=== PATIENT | male | born 1975 | race Caucasian/White ===

== ENCOUNTER 2016-06-21 10:05 | Inpatient (IN) | payer SELFPAY ==
[2016-06-21] VITALS (10 sets, daily range): BP systolic 114–120; BP diastolic 62–80; PULSE 94–100; RESP 18; TEMP 96.4–100.4; O2SAT 99–100
[2016-06-21] MEDS ORDERED: PROPOFOL 1000 MG/100 ML INJ 100 ML ONE ×2 (10:12→16:46)
[2016-06-21] MEDS ORDERED: ceFAZolin 2 GM PREMIX 50 ML ONE (10:13)
[2016-06-21] MEDS ORDERED: DIPHTH/TETANUS/ACEL PERTUSSIS (BOOSTER) 0.5 ML VIAL/PFS IM ONE (10:13)
[2016-06-21 10:26] LABS: I-STAT POTASSIUM 4.4 MMOL/L (3.5-4.9)
[2016-06-21 10:27] LABS: AUTOMATED NEUTROPHIL # 11.3 TH/MM3 (1.8-7.7); BASOPHIL % 0.3 % (0.0-2.0); EOSINOPHIL # 0.2 TH/MM3 (0-0.4); EOSINOPHIL % 1.7 % (0.0-4.0); HEMATOCRIT 40.1 % (39.0-51.0); HEMO FLAGS DIFF FINAL; LYMPH % 14.3 % (9.0-44.0); LYMPHOCYTE # 2.1 TH/MM3 (1.0-4.8); MEAN CELL VOLUME 91.5 FL (80.0-100.0); MEAN CORPUSCULAR HEMOGLOBIN 32.4 PG (27.0-34.0); MEAN CORPUSCULAR HGB CONC 35.4 % (32.0-36.0); MONO % 5.3 % (0.0-8.0); NEUT % 78.4 % (16.0-70.0); PLATELET COUNT 248 TH/MM3 (150-450); RED BLOOD COUNT 4.38 MIL/MM3 (4.50-5.90); RED CELL DISTRIBUTION WIDTH 12.9 % (11.6-17.2); WHITE BLOOD COUNT 14.4 TH/MM3 (4.0-11.0)
[2016-06-21 10:37] LABS: APTT (PATIENT) 27.7 SEC (24.3-30.1); INTERNATIONAL NORMALIZED RATIO 1.1 RATIO; PROTHROMBIN TIME - PATIENT 12.1 SEC (9.8-11.6)
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
[2016-06-21] MEDS ORDERED: IOHEXOL 350 MG/ML 10 ML VIAL (for RAD DIAG) IV ONE (10:47)
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
[2016-06-21] MEDS: DOCUSATE SODIUM 100 MG CAP PO SCH ×2 (11:00→21:00)
[2016-06-21] MEDS ORDERED: CHLORHEXIDINE GLUCONATE 2 % 1 PACK (2 CLOTHS) TOP PRN ×2 (11:00→16:00)
[2016-06-21] MEDS ORDERED: FOSPHENYTOIN SODIUM 500 MG PE/10 ML VIAL IV ONE (11:00)
[2016-06-21] MEDS ORDERED: SODIUM CHLORIDE 0.9% FLUSH 5 ML FLUSH IVF PRN (11:00)
[2016-06-21] MEDS ORDERED: ENALAPRILAT 1.25 MG/ML VIAL IV PRN (11:00)
[2016-06-21] MEDS ORDERED: ONDANSETRON HCL 4 MG/2 ML VIAL IV PRN (11:00)
[2016-06-21] MEDS ORDERED: MANNITOL INJ 50 ML ONE ×2 (11:00→11:04)
[2016-06-21] MEDS ORDERED: MISCELLANEOUS NURSING INFORMATION XX SCH ×2 (11:00→16:00)
[2016-06-21] MEDS ORDERED: THROMBIN (TOPICAL) 5,000 UNIT VIAL ONE ×2 (11:03→11:58)
[2016-06-21] MEDS ORDERED: SODIUM CHLORIDE 0.9% 20 ML VIAL ONE (11:03)
[2016-06-21] MEDS ORDERED: BUPIVACAINE/EPINEPHRINE 0.5% PF 30 ML VIAL ONE (11:03)
[2016-06-21] MEDS ORDERED: ceFAZolin INJ 1,000 MG VIAL ONE (11:04)
[2016-06-21] MEDS ORDERED: GENTAMICIN SULFATE 80 MG/2 ML VIAL ONE ×2 (11:04→11:06)
[2016-06-21] MEDS ORDERED: GELFOAM SIZE 100 ONE (11:04)
[2016-06-21] MEDS ORDERED: FUROSEMIDE 100 MG/10 ML VIAL ONE (11:04)
[2016-06-21] MEDS ORDERED: VANCOMYCIN HCL 1000 MG VIAL ONE (11:06)
[2016-06-21] MEDS ORDERED: SODIUM CHLOR 0.9% 250 ML INJ 250 ML ONE (11:07)
[2016-06-21] MEDS ORDERED: 3% SALINE INJ 500 ML IV SCH (11:20)
[2016-06-21] MEDS ORDERED: SODIUM BICARBONATE 8.4% INJ 50 ML ONE ×2 (11:21→14:51)
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
[2016-06-21] MEDS ORDERED: levETIRAcetam 500 MG/5 ML VIAL IV ONE (11:34)
[2016-06-21 11:43] LABS: BLOOD GAS CARBOXYHEMOGLOBIN 0.7 % (0-4); BLOOD GAS HCO3 19 mmol/L (22-26); BLOOD GAS METHEMOGLOBIN 0.8 % (0-2); BLOOD GAS O2 HGB SATURATION 99 % (90-100); BLOOD GAS OXYGEN CONTENT 13.7 Vol % (12.0-20.0); BLOOD GAS PCO2 39 mmHg (38-42); BLOOD GAS PO2 515 mmHg (61-120); BLOOD GAS TOTAL HGB 8.9 G/DL (12.0-16.0); TEMP CORR TO 98.6
[2016-06-21 11:44] LABS: CRITICAL VALUE NO; DRAW SITE ART LINE; FIO2 100 %; OXYGEN DEVICE VENTILATOR; STAT YES
[2016-06-21] MEDS ORDERED: PHENYLEPH/NS 1000 MCG/10 ML SYR IV ONE (12:00)
[2016-06-21] MEDS ORDERED: DEXT 5%-NACL 0.45% 500 ML INJ 500 ML IV ONE (12:00)
[2016-06-21] MEDS: levETIRAcetam INJ 500 MG in SODIUM CHLORIDE 0.9% INJ 100 ML IV SCH ×2 (12:00→21:00)
[2016-06-21] MEDS ORDERED: SODIUM CHLOR 0.9% 250 ML INJ 250 ML IV ONE (12:00)
[2016-06-21] MEDS ORDERED: PROPOFOL 200 MG/20 ML AMP IV ONE (12:00)
[2016-06-21] MEDS ORDERED: FOSPHENYTOIN INJ 500 MGPE in SODIUM CHLORIDE 0.9% INJ 50 ML IV ONE (12:00)
[2016-06-21] MEDS: PANTOPRAZOLE SODIUM 40 MG VIAL IVP SCH (12:00)
[2016-06-21] MEDS ORDERED: NORMOSOL R INJ 1,000 ML IV ONE (12:00)
[2016-06-21 12:09] LABS: BICARBONATE 21.8 MEQ/L (21.0-32.0); CALCIUM-PROTEIN CORRECTED 7.9 MG/DL (8.5-10.1); TOTAL BILIRUBIN ADULT 0.2 MG/DL (0.2-1.0)
[2016-06-21 12:10] LABS: POTASSIUM 4.7 MEQ/L (3.5-5.1)
[2016-06-21] MEDS ORDERED: SUCCINYLCHOLINE CHLORIDE 200 MG/10 ML VIAL IVP ONE (12:12)
[2016-06-21] MEDS ORDERED: ETOMIDATE 20 MG/10 ML VIAL IV PUSH ONE (12:12)
[2016-06-21] MEDS ORDERED: LORazepam 2 MG/ML VIAL IVP ONE (12:12)
[2016-06-21] MEDS ORDERED: LIDOCAINE HCL 2% 100 MG/5 ML SYRINGE IV PUSH ONE (12:12)
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
--- NOTE | 2016-06-21 13:25 | PD.OP ---
Operative Report Date of Surgery: Jun 21, 2016 Preoperative Diagnosis: Severe traumatic brain injury with acute left subdural hemorrhage and associated traumatic subarachnoid hemorrhage with diffuse cerebral swelling and midline shift Postoperative Diagnosis: Same Procedure: Left frontotemporoparietal craniotomy for evacuation of subdural hemorrhage; left decompressive craniectomy with expansive duraplasty; right frontal bur hole ventriculostomy placement; microsurgical technique Anesthesia: Gen. endotracheal by Inder Solitario Surgeon: Noel Moscoso M.D. Feed Manager(s): Mirian Anne Operation and Findings: This is a middle aged gentleman who suffered from severe traumatic brain injury with a Danielle Coma Score of 4. She has a diffuse cerebral swelling along with a left acute subdural hemorrhage and midline shift. No family is currently available the procedure is being undertaken taking the patient's best interest into account. Following initiation of a general endotracheal anesthesia the patient had invasive lines and Guzman catheter in place along with the sequential compression device. A gram of vancomycin and Keppra along with 100 g of mannitol total was administered intravenously and he was positioned with the left side up on a shoulder roll and head secured on a horseshoe headrest. The left frontal, parietal and temporal areas along with the right frontal area shaved and prepped with Betadine solution and ChloraPrep and sterilely draped in the usual sterile fashion. A large left trauma reverse question monserrat incision was then made after infiltrating the scalp was 0.5% Marcaine with epinephrine solution a skin incision made extending onto the galea and the temporalis muscle and fascia also split and detached from the underlying skull. Bakari clips were used at the scalp edges for hemostasis and the flap retracted with hooks. With an automated watershed tender jyotsna hole was made one in the frontal and one in the inferior temporal area and with the craniotome the bone flap elevated. A temporal craniectomy using a Leksell was also undertaken to decompress the middle fossa down to the floor. The dura was opened in a cruciate form and subdural hemorrhage under pressure was identified clotted mainly clotted blood. Left frontal contusions also noticed which were cauterized using microtechnique with microscope magnification. The brain was swollen with a protrusion through skull defect and the traumatic S Stewart hemorrhage was also evident. DuraGen was used for expansive duraplasty to allow for the brain swelling. The bone flap was not replaced and placed in a sterile container in the freezer for later replacement. A drain was also placed in the subgaleal space which was exited through a separate site and secured to the scalp. The galea was then approximated using 2-0 Vicryl Sutures and final scalp closure was with tha. Subsequently the right frontal area was infiltrated with landmarks 11 cm behind the nasion and 3 cm right of the midline. A bur hole was made using the automated watershed tender and the underlying dura cauterized and opened in a cruciate format. The bactiseal ventriculostomy catheter within past the lateral ventricle at a depth of 7 cm blood-tinged CSF was encountered. The distal end was tunneled under the scalp and secured the exit site with a 3-0 nylon and connected to a drainage bag. The galea was approximated using 3-0 Vicryl Stitches and final closure with tha. A sterile non-pressure dressing was then applied. There were no intraoperative complications and all sponge and needle count was correct at the end of the procedure. Estimated blood loss about 200 cc. Noel Moscoso MD Jun 21, 2016 13:25
--- NOTE | 2016-06-21 13:54 | PD.OP ---
cc: Edis Russell MD Operative Report Date of Surgery: Jun 21, 2016 Preoperative Diagnosis: Comminuted left femur fracture Postoperative Diagnosis: Procedure: Placement of traction pin, closed reduction of left femur fracture Anesthesia: Gen. Surgeon: Edis Russell Stylist Assistant(s): DANIELE Amezcua PA-C Operation and Findings: This patient was a trauma patient. He was brought to the operating room emergently by Dr. Moscoso for treatment of subdural hematoma. He has a segmental left femur fracture. He was not cleared for definitive treatment of the femur. Because of patient's overall medical condition, definitive intubated nail fixation may be delayed for several days or possibly weeks. I discussed this case with Dr. Loving of anesthesia as well as Dr. Moscoso of neurosurgery and decision was made to proceed with skeletal traction. Procedure began with placement of traction pin. Skin was prepped with alcohol followed by DuraPrep. A small incision was made over the lateral aspect of the distal femur. A skeletal traction pin was now drilled to the distal femur in the supracondylar region. Next attention was turned to reduction. Gentle traction was applied. The leg was manipulated to help improve alignment of the fracture. Patient was now transferred to his hospital bed. He is placed in skeletal traction to help maintain reduction. Patient was transferred back to intensive care in critical condition. Edis Russell MD Jun 21, 2016 13:54
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
[2016-06-21] MEDS ORDERED: NOREPINEPHRINE 4 MG/4 ML AMP ONE (14:02)
[2016-06-21] MEDS ORDERED: MIDAZOLAM HCL 2 MG/2 ML VIAL ONE (14:10)
[2016-06-21] MEDS ORDERED: fentaNYL CITRATE 250 MCG/5 ML AMP ONE (14:11)
[2016-06-21] MEDS ORDERED: VECURONIUM BROMIDE 10 MG VIAL ONE (14:13)
[2016-06-21] MEDS ORDERED: MIDAZOLAM HCL 5 MG/ML VIAL (1 ML) ONE (14:13)
[2016-06-21] MEDS ORDERED: SODIUM CHLORIDE 23.4% INJ 240 MEQ in SYRINGE/BAG 1 EA IV ONE (14:15)
[2016-06-21] MEDS ORDERED: VASOPRESSIN INJ 20 UNITS/ML VIAL ONE (14:23)
[2016-06-21] MEDS ORDERED: [UNRECOGNIZED DRUG - REMARK] IV SCH ×2 (14:30)
[2016-06-21] MEDS ORDERED: VASOPRESSIN 40 U/D5W 100 ML Hypotension, do NOT titrate (enter ordered rate) IV SCH ×2 (14:30)
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
[2016-06-21] MEDS ORDERED: EPINEPHrine HCL (1:1000) 1 MG/ML VIAL ONE (14:38)
[2016-06-21 14:44] LABS: BLOOD GAS BASE EXCESS -4.6 mmol/L (-2-2); BLOOD GAS CARBOXYHEMOGLOBIN 1.2 % (0-4); BLOOD GAS HCO3 18 mmol/L (22-26); BLOOD GAS METHEMOGLOBIN 0.7 % (0-2); BLOOD GAS O2 HGB SATURATION 98 % (90-100); BLOOD GAS OXYGEN CONTENT 9.5 Vol % (12.0-20.0); BLOOD GAS PCO2 22 mmHg (38-42); BLOOD GAS PO2 267 mmHg (61-120); BLOOD GAS TOTAL HGB 6.4 G/DL (12.0-16.0); CRITICAL VALUE YES; FIO2 45 %; OXYGEN DEVICE VENTILATOR; TEMP CORR TO 98.6
[2016-06-21 14:45] LABS: DRAW SITE ART LINE; STAT YES
[2016-06-21] MEDS ORDERED: VECURONIUM BROMIDE 10 MG VIAL IV ONE (14:45)
[2016-06-21] MEDS ORDERED: MANNITOL 12.5 GM/50 ML VIAL IV ONE (14:45)
[2016-06-21] MEDS ORDERED: MIDAZOLAM HCL 5 MG/5 ML VIAL IVP ONE (14:45)
[2016-06-21 14:46] LABS: AUTOMATED NEUTROPHIL # 13.2 TH/MM3 (1.8-7.7); BASOPHIL # 0.1 TH/MM3 (0-0.2); BASOPHIL % 0.4 % (0.0-2.0); EOSINOPHIL % 0.2 % (0.0-4.0); LYMPH % 4.2 % (9.0-44.0); LYMPHOCYTE # 0.6 TH/MM3 (1.0-4.8); MEAN CELL VOLUME 90.1 FL (80.0-100.0); MEAN CORPUSCULAR HEMOGLOBIN 31.8 PG (27.0-34.0); MEAN CORPUSCULAR HGB CONC 35.2 % (32.0-36.0); MONO % 4.7 % (0.0-8.0); NEUT % 90.5 % (16.0-70.0); PLATELET COUNT 124 TH/MM3 (150-450); RED CELL DISTRIBUTION WIDTH 12.7 % (11.6-17.2); WHITE BLOOD COUNT 14.6 TH/MM3 (4.0-11.0)
[2016-06-21 14:52] LABS: HEMO FLAGS DIFF FINAL
[2016-06-21] MEDS ORDERED: SODIUM BICARBONATE 8.4% INJ 50 MEQ/50 ML SYR ONE (14:53)
[2016-06-21 14:59] LABS: APTT (PATIENT) 30.9 SEC (24.3-30.1); INTERNATIONAL NORMALIZED RATIO 1.5 RATIO; PROTHROMBIN TIME - PATIENT 16.4 SEC (9.8-11.6)
[2016-06-21] MEDS: VASOPRESSIN INJ 40 UNITS in SODIUM CHLORIDE 0.9% INJ 98 ML IV SCH (15:00)
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
[2016-06-21] MEDS ORDERED: POTASSIUM CL 40 MEQ/30 ML LIQ UDC PO/TUBE PRN ×2 (15:45)
[2016-06-21] MEDS ORDERED: MAGNESIUM SULFATE INJ 2 GM in SODIUM CHLORIDE 0.9% INJ 96 ML IV PRN (15:45)
[2016-06-21] MEDS ORDERED: MAGNESIUM OXIDE 400 MG TAB PO PRN (15:45)
[2016-06-21] MEDS ORDERED: POTASSIUM PHOSPHATE MONOBASIC 500 MG TAB PO/TUBE PRN (15:45)
[2016-06-21] MEDS ORDERED: POTASSIUM CHLOR 20 MEQ PREMIX 100 ML IV PRN (15:45)
[2016-06-21] MEDS ORDERED: POTASSIUM CHLOR 40 MEQ PREMIX 100 ML IV PRN (15:45)
[2016-06-21] MEDS ORDERED: POTASSIUM PHOSPHATE MONOBASIC 500 MG TAB PO PRN (15:45)
[2016-06-21] MEDS ORDERED: DEXTROSE 50% IN WATER 50 ML VIAL(D50) IV PUSH PRN (15:45)
[2016-06-21] MEDS ORDERED: MAGNESIUM SULFATE INJ 4 GM in SODIUM CHLORIDE 0.9% INJ 92 ML IV PRN (15:45)
[2016-06-21] MEDS ORDERED: SODIUM PHOSPHATE INJ 30 MMOL in SODIUM CHLOR 0.9% 250 ML INJ 240 ML IV PRN (15:45)
[2016-06-21] MEDS ORDERED: SODIUM CHLORIDE 0.9% FLUSH 5 ML FLUSH IV FLUSH PRN (16:00)
[2016-06-21 16:50] LABS: BLOOD GAS BASE EXCESS -6.1 mmol/L (-2-2); BLOOD GAS HCO3 18 mmol/L (22-26); BLOOD GAS METHEMOGLOBIN 0.9 % (0-2); BLOOD GAS O2 HGB SATURATION 98 % (90-100); BLOOD GAS OXYGEN CONTENT 15.6 Vol % (12.0-20.0); BLOOD GAS PCO2 28 mmHg (38-42); BLOOD GAS PO2 261 mmHg (61-120); BLOOD GAS TOTAL HGB 10.9 G/DL (12.0-16.0); CRITICAL VALUE NO; OXYGEN DEVICE VENTILATOR; TEMP CORR TO 98.6
[2016-06-21 16:51] LABS: DRAW SITE ART LINE; FIO2 45 %; STAT YES
[2016-06-21 17:39] LABS: BICARBONATE 19.6 MEQ/L (21.0-32.0); POTASSIUM 4.1 MEQ/L (3.5-5.1)
[2016-06-21] MEDS: INSULIN NovoLIN REGULAR SUPPLEMENTAL SCALE SQ SCH (18:00)
[2016-06-21] MEDS: MANNITOL 12.5 GM/50 ML VIAL IV SCH ×2 (18:00→23:13)
[2016-06-21 18:01] LABS: CALCIUM-PROTEIN CORRECTED 8.3 MG/DL (8.5-10.1)
[2016-06-21] MEDS: NOREPINEPHRINE INJ 4 MG in SODIUM CHLOR 0.9% 250 ML INJ 250 ML IV SCH (20:50)
[2016-06-21] MEDS: MIDAZOLAM 100 MG/NS 100 ML DRIP Premix IV SCH (20:51)
[2016-06-21] MEDS: SODIUM CHLORIDE 0.9% FLUSH 5 ML FLUSH IV FLUSH SCH (21:00)
[2016-06-21 21:06] LABS: MEAN CORPUSCULAR HGB CONC 36.1 % (32.0-36.0)
[2016-06-21 22:28] LABS: AUTOMATED NEUTROPHIL # 17.6 TH/MM3 (1.8-7.7); BASOPHIL % 0.2 % (0.0-2.0); HEMATOCRIT 29.2 % (39.0-51.0); LYMPH % 4.1 % (9.0-44.0); LYMPHOCYTE # 0.9 TH/MM3 (1.0-4.8); MEAN CELL VOLUME 89.1 FL (80.0-100.0); MEAN CORPUSCULAR HEMOGLOBIN 31.2 PG (27.0-34.0); MONO % 10.4 % (0.0-8.0); NEUT % 85.3 % (16.0-70.0); PLATELET COUNT 122 TH/MM3 (150-450); RED BLOOD COUNT 3.28 MIL/MM3 (4.50-5.90); RED CELL DISTRIBUTION WIDTH 13.2 % (11.6-17.2); WHITE BLOOD COUNT 20.6 TH/MM3 (4.0-11.0)
[2016-06-21 22:30] LABS: HEMO FLAGS AUTO DIFF
[2016-06-21 23:04] LABS: BICARBONATE 19.1 MEQ/L (21.0-32.0)
[2016-06-21 23:07] LABS: POTASSIUM 2.4 MEQ/L (3.5-5.1)
[2016-06-21 23:18] LABS: CALCIUM-PROTEIN CORRECTED 9.1 MG/DL (8.5-10.1)
[2016-06-21 23:19] LABS: PLATELET ESTIMATE SMEAR LOW (NORMAL); PLATELET MORPHOLOGY NORMAL (NORMAL); SCAN/DIFF AUTO DIFF CONFIRMED
[2016-06-22] VITALS (19 sets, daily range): BP systolic 110–128; BP diastolic 62–87; PULSE 58–105; RESP 15–18; TEMP 96.6–100; O2SAT 98–100
[2016-06-22] MEDS: POTASSIUM CHLOR 40 MEQ PREMIX 100 ML IV PRN (00:08)
[2016-06-22] MEDS: NOREPINEPHRINE INJ 4 MG in SODIUM CHLOR 0.9% 250 ML INJ 250 ML IV SCH ×4 (02:43→21:38)
[2016-06-22] MEDS: CHLORHEXIDINE GLUCONATE 2 % 1 PACK (2 CLOTHS) TOP SCH (02:47)
[2016-06-22] MEDS: PROPOFOL 1000 MG/100 ML INJ 100 ML IV SCH ×5 (02:48→23:17)
[2016-06-22 03:53] LABS: HEMATOCRIT 28.7 % (39.0-51.0); MEAN CELL VOLUME 88.6 FL (80.0-100.0); MEAN CORPUSCULAR HEMOGLOBIN 31.9 PG (27.0-34.0); PLATELET COUNT 121 TH/MM3 (150-450); RED BLOOD COUNT 3.24 MIL/MM3 (4.50-5.90); RED CELL DISTRIBUTION WIDTH 13.3 % (11.6-17.2); WHITE BLOOD COUNT 20.9 TH/MM3 (4.0-11.0)
[2016-06-22 03:54] LABS: REVIEW FLAG FINAL
[2016-06-22] MEDS ORDERED: CHLORHEXIDINE GLUCONATE 2 % 1 PACK (2 CLOTHS) TOP SCH (04:00)
[2016-06-22 04:17] LABS: BICARBONATE 17.9 MEQ/L (21.0-32.0); POTASSIUM 3.4 MEQ/L (3.5-5.1)
[2016-06-22] MEDS: MIDAZOLAM 100 MG/NS 100 ML DRIP Premix IV SCH ×2 (04:32→15:36)
[2016-06-22] MEDS: POTASSIUM CHLOR 20 MEQ PREMIX 100 ML IV PRN (04:32)
[2016-06-22 04:38] LABS: CALCIUM-PROTEIN CORRECTED 8.8 MG/DL (8.5-10.1)
[2016-06-22] MEDS: MANNITOL 12.5 GM/50 ML VIAL IV SCH ×3 (05:19→17:39)
--- NOTE | 2016-06-22 05:19 | RADRPT ---
EXAM DATE/TIME: 06/22/2016 04:28 [place] COMPARISON: CHEST SINGLE AP, June 21, 2016, 9:59. INDICATIONS : Shortness of breath. MEDICAL HISTORY : Unobtainable. SURGICAL HISTORY : Unobtainable. ENCOUNTER: Subsequent ACUITY: 2 days PAIN SCORE: Non-responsive. LOCATION: Bilateral chest FINDINGS: No infiltrates seen. No pleural effusion or pneumothorax. Heart size stable, within normal limits. Endotracheal tube tip is about 3 cm above the marjan. There is a nasogastric tube now present, coiled in the stomach. Left subclavian central venous catheter has also been placed and the tip in the supe rior vena cava. CONCLUSION: Support tubes appropriately positioned as above. Lungs remain clear. Prince Valdez MD on June 22, 2016 at 5:16 Board Certified Radiologist. This report was verified electronically.
[2016-06-22 05:30] LABS: BLOOD GAS BASE EXCESS -5.5 mmol/L (-2-2); BLOOD GAS HCO3 18 mmol/L (22-26); BLOOD GAS O2 HGB SATURATION 97 % (90-100); BLOOD GAS PCO2 26 mmHg (38-42); BLOOD GAS PO2 173 mmHg (61-120); CRITICAL VALUE NO; OXYGEN DEVICE VENTILATOR; TEMP CORR TO 98.6
[2016-06-22 05:31] LABS: DRAW SITE ART LINE; FIO2 30 %; STAT NO; VENT SETTINGS PRVC/AC
[2016-06-22] MEDS: INSULIN NovoLIN REGULAR SUPPLEMENTAL SCALE SQ SCH ×4 (05:38→18:00)
[2016-06-22] MEDS: DOCUSATE SODIUM 100 MG CAP PO SCH ×2 (09:00→20:39)
[2016-06-22] MEDS: levETIRAcetam INJ 500 MG in SODIUM CHLORIDE 0.9% INJ 100 ML IV SCH ×2 (09:00→20:39)
[2016-06-22] MEDS: SODIUM CHLORIDE 0.9% FLUSH 5 ML FLUSH IV FLUSH SCH ×2 (09:00→20:40)
[2016-06-22] MEDS ORDERED: RESP: ALBUTEROL 2.5 MG/IPRATROPIUM 0.5 MG NEB (PRN) NEB (09:30)
[2016-06-22] MEDS ORDERED: PNEUMOCOCCAL POLYVALENT INJ 25 MCG/0.5 ML SYR IM ONE (10:00)
[2016-06-22 10:01] LABS: BLOOD GAS BASE EXCESS -4.9 mmol/L (-2-2); BLOOD GAS CARBOXYHEMOGLOBIN 0.9 % (0-4); BLOOD GAS HCO3 20 mmol/L (22-26); BLOOD GAS O2 HGB SATURATION 97 % (90-100); BLOOD GAS OXYGEN CONTENT 13.2 Vol % (12.0-20.0); BLOOD GAS PCO2 35 mmHg (38-42); BLOOD GAS PO2 165 mmHg (61-120); BLOOD GAS TOTAL HGB 9.4 G/DL (12.0-16.0); CRITICAL VALUE NO; DRAW SITE ART LINE; FIO2 30 %; OXYGEN DEVICE VENTILATOR; STAT NO; TEMP CORR TO 98.6; VENT SETTINGS PRVC/AC
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
[2016-06-22] MEDS: fentaNYL 2,500 MCG/NS 250 ML IV SCH (11:36)
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
[2016-06-22] MEDS ORDERED: ALBUMIN HUMAN 5% 25 GM/500 ML BOTTLE IV ONE (11:45)
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
[2016-06-22] MEDS: PANTOPRAZOLE SODIUM 40 MG VIAL IVP SCH (12:00)
[2016-06-22] MEDS: VASOPRESSIN INJ 40 UNITS in SODIUM CHLORIDE 0.9% INJ 98 ML IV SCH (15:00)
[2016-06-22] MEDS ORDERED: SODIUM CHLORID 0.9% 500 ML INJ 500 ML IV ONE (21:30)
[2016-06-23] VITALS (19 sets, daily range): BP systolic 130–148; BP diastolic 53–68; PULSE 56–89; RESP 15; TEMP 96.8–100.2; O2SAT 100
[2016-06-23] MEDS: fentaNYL 2,500 MCG/NS 250 ML IV SCH ×2 (01:10→19:14)
[2016-06-23] MEDS: NOREPINEPHRINE INJ 4 MG in SODIUM CHLOR 0.9% 250 ML INJ 250 ML IV SCH ×3 (01:45→13:42)
[2016-06-23] MEDS: MIDAZOLAM 100 MG/NS 100 ML DRIP Premix IV SCH ×3 (03:01→23:34)
[2016-06-23 03:44] LABS: MEAN CORPUSCULAR HEMOGLOBIN 31.5 PG (27.0-34.0); PLATELET COUNT 91 TH/MM3 (150-450); RED BLOOD COUNT 2.33 MIL/MM3 (4.50-5.90); RED CELL DISTRIBUTION WIDTH 14.1 % (11.6-17.2); WHITE BLOOD COUNT 19.4 TH/MM3 (4.0-11.0)
[2016-06-23 03:47] LABS: REVIEW FLAG FINAL
[2016-06-23] MEDS: CHLORHEXIDINE GLUCONATE 2 % 1 PACK (2 CLOTHS) TOP SCH (03:53)
[2016-06-23 04:37] LABS: BICARBONATE 19.6 MEQ/L (21.0-32.0); POTASSIUM 3.9 MEQ/L (3.5-5.1)
[2016-06-23 04:58] LABS: BLOOD GAS CARBOXYHEMOGLOBIN 1.1 % (0-4); BLOOD GAS HCO3 19 mmol/L (22-26); BLOOD GAS METHEMOGLOBIN 0.9 % (0-2); BLOOD GAS O2 HGB SATURATION 97 % (90-100); BLOOD GAS OXYGEN CONTENT 10.5 Vol % (12.0-20.0); BLOOD GAS PCO2 32 mmHg (38-42); BLOOD GAS PO2 166 mmHg (61-120); BLOOD GAS TOTAL HGB 7.4 G/DL (12.0-16.0); CRITICAL VALUE NO; DRAW SITE ALINE; FIO2 30 %; OXYGEN DEVICE VENTILATOR; STAT NO; TEMP CORR TO 98.6; ULNAR PULSE PRESENT; VENT SETTINGS PRVC/15/500/1.0/+5
[2016-06-23 05:05] LABS: CALCIUM-PROTEIN CORRECTED 8.3 MG/DL (8.5-10.1)
[2016-06-23] MEDS: INSULIN NovoLIN REGULAR SUPPLEMENTAL SCALE SQ SCH ×5 (05:15→23:32)
[2016-06-23] MEDS: MANNITOL 12.5 GM/50 ML VIAL IV SCH ×4 (05:15→18:00)
[2016-06-23] MEDS: DOCUSATE SODIUM 100 MG CAP PO SCH ×2 (08:58→20:00)
[2016-06-23] MEDS: levETIRAcetam INJ 500 MG in SODIUM CHLORIDE 0.9% INJ 100 ML IV SCH ×2 (08:58→20:00)
[2016-06-23] MEDS: SODIUM CHLORIDE 0.9% FLUSH 5 ML FLUSH IV FLUSH SCH ×2 (08:58→20:00)
[2016-06-23] MEDS ORDERED: SODIUM CHLOR 0.9% 250 ML INJ 250 ML IV ONE (09:45)
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
[2016-06-23] MEDS: PANTOPRAZOLE SODIUM 40 MG VIAL IVP SCH (13:43)
[2016-06-23] MEDS: VASOPRESSIN INJ 40 UNITS in SODIUM CHLORIDE 0.9% INJ 98 ML IV SCH (15:00)
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
[2016-06-23 18:32] LABS: BLOOD GAS BASE EXCESS -4.6 mmol/L (-2-2); BLOOD GAS CARBOXYHEMOGLOBIN 1.6 % (0-4); BLOOD GAS HCO3 20 mmol/L (22-26); BLOOD GAS METHEMOGLOBIN 0.9 % (0-2); BLOOD GAS O2 HGB SATURATION 97 % (90-100); BLOOD GAS OXYGEN CONTENT 11.4 Vol % (12.0-20.0); BLOOD GAS PCO2 35 mmHg (38-42); BLOOD GAS PO2 146 mmHg (61-120); BLOOD GAS TOTAL HGB 8.1 G/DL (12.0-16.0); CRITICAL VALUE NO; OXYGEN DEVICE VENT; TEMP CORR TO 98.6; VENT SETTINGS PRVC/15/500/5/
[2016-06-23 18:33] LABS: DRAW SITE ALINE; FIO2 30 %; STAT NO
[2016-06-24] VITALS (29 sets, daily range): BP systolic 100–182; BP diastolic 52–82; PULSE 68–130; RESP 16–18; TEMP 98.2–101.8; O2SAT 92–100
[2016-06-24] MEDS ORDERED: VASOPRESSIN INJ 40 UNITS in DEXTROSE 5% IN WATER 100ML INJ 98 ML IV SCH ×2 (00:17)
[2016-06-24] MEDS ORDERED: DESMOPRESSIN ACETATE 4 MCG/ML VIAL IV PUSH SCH (01:00)
[2016-06-24] MEDS: CHLORHEXIDINE GLUCONATE 2 % 1 PACK (2 CLOTHS) TOP SCH (03:17)
[2016-06-24 05:01] LABS: BLOOD GAS BASE EXCESS -3.9 mmol/L (-2-2); BLOOD GAS CARBOXYHEMOGLOBIN 1.5 % (0-4); BLOOD GAS HCO3 20 mmol/L (22-26); BLOOD GAS METHEMOGLOBIN 0.8 % (0-2); BLOOD GAS O2 HGB SATURATION 93 % (90-100); BLOOD GAS OXYGEN CONTENT 11.2 Vol % (12.0-20.0); BLOOD GAS PCO2 35 mmHg (38-42); BLOOD GAS PO2 76 mmHg (61-120); BLOOD GAS TOTAL HGB 8.5 G/DL (12.0-16.0); CRITICAL VALUE NO; DRAW SITE ALINE; FIO2 30 %; OXYGEN DEVICE VENTILATOR; STAT NO; TEMP CORR TO 98.6; ULNAR PULSE PRESENT; VENT SETTINGS PRVC/16/550/1.0/+5
[2016-06-24 05:04] LABS: HEMATOCRIT 23.2 % (39.0-51.0); MEAN CELL VOLUME 89.5 FL (80.0-100.0); MEAN CORPUSCULAR HEMOGLOBIN 30.7 PG (27.0-34.0); MEAN CORPUSCULAR HGB CONC 34.2 % (32.0-36.0); RED BLOOD COUNT 2.59 MIL/MM3 (4.50-5.90); RED CELL DISTRIBUTION WIDTH 14.7 % (11.6-17.2); WHITE BLOOD COUNT 14.2 TH/MM3 (4.0-11.0)
[2016-06-24 05:05] LABS: REVIEW FLAG FINAL
[2016-06-24 05:06] LABS: PLATELET COUNT 86 TH/MM3 (150-450)
[2016-06-24 05:33] LABS: BICARBONATE 21.2 MEQ/L (21.0-32.0); POTASSIUM 3.6 MEQ/L (3.5-5.1)
[2016-06-24] MEDS: MANNITOL 12.5 GM/50 ML VIAL IV SCH ×2 (05:39)
[2016-06-24] MEDS: INSULIN NovoLIN REGULAR SUPPLEMENTAL SCALE SQ SCH ×3 (06:00→18:00)
--- NOTE | 2016-06-24 07:46 | PD.ORT.PN ---
Subjective Subjective Remarks s/p application of femoral traction pin and skeletal traction underwent bone flap of head this weekend still has elevated ICP Objective Vitals Vital Signs Date Time Temp Pulse Resp B/P Pulse Ox O2 Delivery O2 Flow Rate FiO2 06/24/16 06:00 91 136/61 06/24/16 06:00 91 06/24/16 05:00 88 132/59 06/24/16 04:07 99 30 06/24/16 04:00 100.6 84 16 149/69 100 06/24/16 04:00 84 06/24/16 04:00 84 149/69 06/24/16 04:00 30 06/24/16 03:00 79 144/67 06/24/16 02:00 75 143/65 06/24/16 02:00 75 06/24/16 01:00 85 144/62 06/24/16 00:00 87 06/24/16 00:00 100.8 87 16 145/56 100 06/24/16 00:00 87 145/56 06/24/16 00:00 30 06/23/16 23:35 100 30 06/23/16 23:00 87 143/55 06/23/16 22:00 86 142/55 06/23/16 22:00 86 06/23/16 21:00 100 30 06/23/16 21:00 100 30 06/23/16 20:00 89 06/23/16 20:00 30 06/23/16 20:00 100.2 89 15 142/53 100 06/23/16 18:00 89 06/23/16 16:00 30 06/23/16 16:00 99.3 80 15 148/58 100 06/23/16 16:00 80 06/23/16 15:41 100 30 06/23/16 14:00 72 06/23/16 12:56 100 30 06/23/16 12:00 69 06/23/16 12:00 30 06/23/16 12:00 98.8 69 15 140/60 100 06/23/16 10:00 66 06/23/16 09:50 100 30 06/23/16 08:00 30 06/23/16 08:00 62 06/23/16 08:00 97.9 64 15 136/60 100 I/O 2/12/17 2/04/2706/23/16 06/24/16 06/24/16 06/24/16 07:00 15:00 23:00 07:00 15:00 23:00 Intake Total 2157 ml 1803 ml 1829 ml 1152 ml Output Total 516 ml 763 ml 2407 ml 1629 ml Balance 1641 ml 1040 ml -578 ml -477 ml Intake IV Total 2157 ml 1553 ml 1829 ml 1152 ml Packed Cells 250 ml Output Urine Total 450 ml 600 ml 2350 ml 1570 ml Stool Total 0 ml 0 ml 0 ml Gastric Drainage Total 100 ml 0 ml 0 ml Drainage Total 66 ml 63 ml 57 ml 59 ml Result Diagram: 06/24/16 0450 06/24/16 0450 Imaging Last 24 hours Impressions Chest X-Ray 06/22/16 0000 Signed Impressions: Service Date/Time: Wednesday, June 22, 2016 04:28 - CONCLUSION: Support tubes appropriately positioned as above. Lungs remain clear. Prince Valdez MD Procedures Placement of traction pin, closed reduction of left femur fracture (06/21/16) Objective Remarks Bilateral lower extremities cool to touch and pale, symmetric. LLE in skeletal traction. Pin sites clean with mild bloody drainage on dressing. Good cap refill. 2+ dorsalis pedis. Unable to assess motor/neurovascular status due to sedation/intubation. Assessment & Plan Problem List: (1) Closed fracture of left femur (2) Acute subdural hematoma (3) Blunt head trauma (4) Coma (5) Acute respiratory failure Assessment and Plan Ortho status stable POD #3. Placement of traction pin, closed reduction of left femur fracture will await further improvement of patient condition before surgical intervention performed for the femur have spoken with trauma team and will await clearance from them Yehuda Kay Jun 24, 2016 07:46
[2016-06-24] MEDS ORDERED: VASOPRESSIN INJ 40 UNITS in SODIUM CHLORIDE 0.9% INJ 98 ML IV SCH (08:00)
[2016-06-24] MEDS: levETIRAcetam INJ 500 MG in SODIUM CHLORIDE 0.9% INJ 100 ML IV SCH (08:24)
[2016-06-24] MEDS: DOCUSATE SODIUM 100 MG CAP PO SCH ×2 (08:24→20:29)
[2016-06-24] MEDS: NOREPINEPHRINE INJ 4 MG in SODIUM CHLOR 0.9% 250 ML INJ 250 ML IV SCH ×2 (08:24→21:41)
[2016-06-24] MEDS: SODIUM CHLORIDE 0.9% FLUSH 5 ML FLUSH IV FLUSH SCH ×2 (08:25→20:29)
[2016-06-24] MEDS: fentaNYL 2,500 MCG/NS 250 ML IV SCH (08:54)
[2016-06-24] MEDS: MIDAZOLAM 100 MG/NS 100 ML DRIP Premix IV SCH ×2 (08:54→20:29)
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
[2016-06-24] MEDS ORDERED: SODIUM CHLOR 0.9% 250 ML INJ 250 ML IV ONE (09:45)
[2016-06-24] MEDS: SODIUM CHLOR 0.9% 1000 ML INJ 1,000 ML IV SCH (10:00)
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
[2016-06-24] MEDS: PANTOPRAZOLE SODIUM 40 MG VIAL IVP SCH (12:00)
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
[2016-06-24 13:56] LABS: PROTHROMBIN TIME - PATIENT 11.4 SEC (9.8-11.6)
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
[2016-06-24] MEDS ORDERED: ROCURONIUM INJ 50 MG/5 ML VIAL IV PUSH ONE (15:30)
[2016-06-24] MEDS ORDERED: fentaNYL CITRATE 250 MCG/5 ML AMP IV PUSH ONE (16:15)
[2016-06-24 16:45] LABS: BLOOD GAS BASE EXCESS -2.3 mmol/L (-2-2); BLOOD GAS CARBOXYHEMOGLOBIN 1.3 % (0-4); BLOOD GAS HCO3 23 mmol/L (22-26); BLOOD GAS METHEMOGLOBIN 0.9 % (0-2); BLOOD GAS O2 HGB SATURATION 92 % (90-100); BLOOD GAS OXYGEN CONTENT 13.4 Vol % (12.0-20.0); BLOOD GAS PCO2 43 mmHg (38-42); BLOOD GAS PO2 69 mmHg (61-120); BLOOD GAS TOTAL HGB 10.3 G/DL (12.0-16.0); CRITICAL VALUE NO; OXYGEN DEVICE VENTILATOR; TEMP CORR TO 98.6
[2016-06-24 16:46] LABS: DRAW SITE ART LINE; FIO2 80 %; STAT NO; VENT SETTINGS PRVC/AC
[2016-06-24] MEDS ORDERED: BUMETANIDE INJ 1 MG/4 ML VIAL IV PUSH ONE (17:30)
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
--- NOTE | 2016-06-24 17:46 | MG ---
cc: GILBERT RAMIREZ M.D. Lab No: Date: 06/24/2016 Age: Sex: M Race: EEG NUMBER [id number] Morrison. TECHNIQUE 17 channel EEG. DESCRIPTION The background rhythm is generally slow in the theta frequency at roughly 5-6 Hz which appears to be slower over the right hemisphere. Throughout the tracing there is intermittent sharp activity which does appear to be epileptiform in the right mainly frontal area, but also the right parietal area. There was one or two runs of epileptiform discharges which lasted a prolonged period time for about 10 seconds, no more than that. No other lateralizing features seen. INTERPRETATION Abnormal study on the basis of focal slowing over the left hemisphere as well as intermittent epileptiform discharges over that area. MD AARON Puentes/KK /4:51 PM /5:41 PM
[2016-06-24] MEDS ORDERED: FOSPHENYTOIN INJ 1,000 MGPE in SODIUM CHLORIDE 0.9% INJ 50 ML IV ONE (18:00)
[2016-06-24] MEDS: PIPERACIL-TAZO 4.5 GM PREMIX 100 ML IV SCH (18:35)
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
[2016-06-24] MEDS: RESP: ALBUTEROL 2.5 MG/IPRATROPIUM 0.5 MG NEB (SCH) NEB (19:34)
[2016-06-24] MEDS: PROPOFOL 1000 MG/100 ML INJ 100 ML IV SCH (20:28)
[2016-06-24] MEDS: levETIRAcetam 1000 MG INJ 100 ML IV SCH (20:29)
[2016-06-24] MEDS: FOSPHENYTOIN SODIUM 100 MG PE/2 ML VIAL IV SCH (22:45)
[2016-06-24 22:57] LABS: BLOOD GAS BASE EXCESS -2.5 mmol/L (-2-2); BLOOD GAS CARBOXYHEMOGLOBIN 1.4 % (0-4); BLOOD GAS HCO3 22 mmol/L (22-26); BLOOD GAS METHEMOGLOBIN 0.8 % (0-2); BLOOD GAS O2 HGB SATURATION 95 % (90-100); BLOOD GAS OXYGEN CONTENT 12.1 Vol % (12.0-20.0); BLOOD GAS PO2 88 mmHg (61-120); CRITICAL VALUE NO; OXYGEN DEVICE VENTILATOR; TEMP CORR TO 98.6
[2016-06-24 22:58] LABS: BLOOD GAS PCO2 40 mmHg (38-42); DRAW SITE ART LINE; FIO2 80 %; STAT NO; VENT SETTINGS PRVC/AC
[2016-06-25] VITALS (30 sets, daily range): BP systolic 94–188; BP diastolic 48–64; PULSE 59–90; RESP 18; TEMP 96.4–98.8; O2SAT 96–100
[2016-06-25] MEDS: PIPERACIL-TAZO 4.5 GM PREMIX 100 ML IV SCH ×5 (01:12→23:19)
[2016-06-25 01:19] LABS: HEMATOCRIT 30.4 % (39.0-51.0)
[2016-06-25 01:23] LABS: REVIEW FLAG FINAL
[2016-06-25 01:26] LABS: POTASSIUM 3.2 MEQ/L (3.5-5.1)
[2016-06-25] MEDS: RESP: ALBUTEROL 2.5 MG/IPRATROPIUM 0.5 MG NEB (SCH) NEB ×4 (02:17→19:42)
[2016-06-25] MEDS: POTASSIUM CHLOR 40 MEQ PREMIX 100 ML IV PRN ×2 (02:49→05:24)
[2016-06-25] MEDS: CHLORHEXIDINE GLUCONATE 2 % 1 PACK (2 CLOTHS) TOP SCH (04:00)
[2016-06-25] MEDS: MIDAZOLAM 100 MG/NS 100 ML DRIP Premix IV SCH (04:37)
[2016-06-25] MEDS: fentaNYL 2,500 MCG/NS 250 ML IV SCH ×2 (04:38→22:57)
[2016-06-25 05:27] LABS: AUTOMATED NEUTROPHIL # 10.5 TH/MM3 (1.8-7.7); BASOPHIL % 0.1 % (0.0-2.0); EOSINOPHIL % 0.1 % (0.0-4.0); HEMATOCRIT 30.5 % (39.0-51.0); LYMPH % 4.3 % (9.0-44.0); LYMPHOCYTE # 0.5 TH/MM3 (1.0-4.8); MEAN CELL VOLUME 85.7 FL (80.0-100.0); MEAN CORPUSCULAR HEMOGLOBIN 29.4 PG (27.0-34.0); MEAN CORPUSCULAR HGB CONC 34.3 % (32.0-36.0); MONO % 6.6 % (0.0-8.0); NEUT % 88.9 % (16.0-70.0); PLATELET COUNT 96 TH/MM3 (150-450); RED BLOOD COUNT 3.56 MIL/MM3 (4.50-5.90); RED CELL DISTRIBUTION WIDTH 17.1 % (11.6-17.2); WHITE BLOOD COUNT 11.8 TH/MM3 (4.0-11.0)
[2016-06-25 05:32] LABS: HEMO FLAGS AUTO DIFF
[2016-06-25] MEDS: FOSPHENYTOIN SODIUM 100 MG PE/2 ML VIAL IV SCH (05:40)
--- NOTE | 2016-06-25 05:50 | RADRPT ---
EXAM DATE/TIME: 06/25/2016 04:38 [facility] COMPARISON: CHEST SINGLE AP, June 24, 2016, 17:02. INDICATIONS : Short of breath. MEDICAL HISTORY : Unobtainable. SURGICAL HISTORY : Unobtainable. ENCOUNTER: Subsequent ACUITY: 4 - 6 days PAIN SCORE: Non-responsive. LOCATION: Bilateral chest FINDINGS: The cardiac silhouette is normal in transverse diameter. Support lines and tubes are in satisfactory position. There is diffuse edema versus pneumonia right greater than left. A moderate size right side d effusion is present. CONCLUSION: 1. Diffuse edema versus pneumonia. The findings are similar to the prior exam. Amandeep Krishna MD on June 25, 2016 at 5:47 Board Certified Radiologist. This report was verified electronically.
[2016-06-25] MEDS: INSULIN NovoLIN REGULAR SUPPLEMENTAL SCALE SQ SCH ×5 (05:58→23:19)
[2016-06-25] MEDS: NOREPINEPHRINE INJ 4 MG in SODIUM CHLOR 0.9% 250 ML INJ 250 ML IV SCH ×2 (06:17→20:01)
--- NOTE | 2016-06-25 06:54 | PD.ORT.PN ---
Subjective Subjective Remarks s/p application of femoral traction pin and skeletal traction underwent bone flap of head this ICPs are stabilizing Objective Vitals Vital Signs Date Time Temp Pulse Resp B/P Pulse Ox O2 Delivery O2 Flow Rate FiO2 06/25/16 06:00 77 101/55 06/25/16 06:00 77 06/25/16 05:00 74 100/56 06/25/16 04:04 97 80 06/25/16 04:00 68 06/25/16 04:00 80 06/25/16 04:00 68 94/52 06/25/16 04:00 96.4 68 18 94/52 97 06/25/16 03:00 65 108/59 06/25/16 02:00 59 06/25/16 02:00 59 110/63 06/25/16 01:00 62 114/64 06/25/16 00:00 64 06/25/16 00:00 80 06/25/16 00:00 97.8 64 18 114/64 99 06/25/16 00:00 64 114/64 06/24/16 23:00 68 107/59 06/24/16 22:38 96 80 06/24/16 22:00 74 06/24/16 22:00 74 112/60 06/24/16 21:00 84 100/52 06/24/16 20:00 80 06/24/16 20:00 92 06/24/16 20:00 98.2 92 18 112/52 95 06/24/16 20:00 92 112/52 06/24/16 19:33 94 80 06/24/16 19:33 94 80 06/24/16 19:00 96 110/54 06/24/16 18:00 104 06/24/16 18:00 104 06/24/16 18:00 80 06/24/16 17:20 100.4 126 18 116/66 96 06/24/16 17:00 100.4 126 18 127/63 96 06/24/16 16:47 94 80 06/24/16 16:00 70 06/24/16 16:00 100.0 130 16 182/82 96 06/24/16 16:00 130 06/24/16 16:00 130 06/24/16 14:38 92 50 06/24/16 14:00 110 06/24/16 14:00 110 06/24/16 14:00 95 100 06/24/16 12:45 98.8 76 16 128/58 96 06/24/16 12:00 30 06/24/16 12:00 76 06/24/16 12:00 76 06/24/16 12:00 98.8 76 16 128/58 96 06/24/16 11:43 98 30 06/24/16 10:00 77 06/24/16 10:00 77 06/24/16 08:17 100 30 06/24/16 08:11 94 30 06/24/16 08:00 30 06/24/16 08:00 101.8 92 16 136/62 100 06/24/16 08:00 92 136/62 06/24/16 08:00 92 I/O 06/24/16 06/24/16 06/24/16 06/25/16 06/25/16 06/25/16 07:00 15:00 23:00 07:00 15:00 23:00 Intake Total 1152 ml 1657 ml 1608 ml 1689 ml Output Total 1629 ml 1553 ml 2153 ml 1337 ml Balance -477 ml 104 ml -545 ml 352 ml Intake IV Total 1152 ml 1657 ml 1097 ml 1541 ml Tube Feeding 201 ml 148 ml Packed Cells 250 ml Other 60 ml Output Urine Total 1570 ml 1500 ml 2100 ml 1325 ml Stool Total 0 ml 0 ml Gastric Drainage Total 0 ml 0 ml Drainage Total 59 ml 53 ml 53 ml 12 ml # Bowel Movements 0 0 Result Diagram: 06/25/16 0500 06/25/16 0032 Other Results Laboratory Tests Test 06/24/16 13:10 Prothrombin Time 11.4 SEC (9.8-11.6) Prothromb Time International 1.0 RATIO Ratio Imaging Last 24 hours Impressions Chest X-Ray 06/22/16 0000 Signed Impressions: Service Date/Time: Wednesday, June 22, 2016 04:28 - CONCLUSION: Support tubes appropriately positioned as above. Lungs remain clear. Prince Valdez MD Procedures Placement of traction pin, closed reduction of left femur fracture (06/21/16) Objective Remarks Bilateral lower extremities cool to touch and pale, symmetric. LLE in skeletal traction. Pin sites clean with mild bloody drainage on dressing. Good cap refill. 2+ dorsalis pedis. Unable to assess motor/neurovascular status due to sedation/intubation. Assessment & Plan Problem List: (1) Closed fracture of left femur (2) Acute subdural hematoma (3) Blunt head trauma (4) Coma (5) Acute respiratory failure Assessment and Plan Ortho status stable POD #4. Placement of traction pin, closed reduction of left femur fracture cleared by neuro and trauma for surgery of left femur. potentially plan for surgery today Yehuda Kay Jun 25, 2016 06:54
[2016-06-25 07:02] LABS: BANDS 38 % (0-6); METAMYELOCYTES 1 % (0-1); MYELOCYTES 1 % (0-0); NEUTROPHIL # MANUAL DIFF 10.3 TH/MM3 (1.8-7.7); POLYS (SEG NEUTROPHILS) 47 % (16-70); SCAN/DIFF FINAL DIFF MANUAL; WBC DIFF SAMPLE 100
[2016-06-25 07:03] LABS: PLATELET ESTIMATE SMEAR LOW (NORMAL); PLATELET MORPHOLOGY NORMAL (NORMAL)
[2016-06-25] MEDS: PROPOFOL 1000 MG/100 ML INJ 100 ML IV SCH ×2 (08:47→22:57)
[2016-06-25] MEDS: levETIRAcetam 1000 MG INJ 100 ML IV SCH ×2 (08:47→21:09)
[2016-06-25] MEDS: DOCUSATE SODIUM 100 MG CAP PO SCH ×2 (08:47→21:09)
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
[2016-06-25] MEDS: SODIUM CHLORIDE 0.9% FLUSH 5 ML FLUSH IV FLUSH SCH ×2 (09:08→21:09)
[2016-06-25] MEDS: SODIUM CHLOR 0.9% 1000 ML INJ 1,000 ML IV SCH (09:09)
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
[2016-06-25 09:50] LABS: BLOOD GAS BASE EXCESS -2.7 mmol/L (-2-2); BLOOD GAS HCO3 22 mmol/L (22-26); BLOOD GAS METHEMOGLOBIN 1.1 % (0-2); BLOOD GAS O2 HGB SATURATION 97 % (90-100); BLOOD GAS OXYGEN CONTENT 14.3 Vol % (12.0-20.0); BLOOD GAS PCO2 37 mmHg (38-42); BLOOD GAS PO2 141 mmHg (61-120); BLOOD GAS TOTAL HGB 10.3 G/DL (12.0-16.0); TEMP CORR TO 98.6
[2016-06-25 09:51] LABS: CRITICAL VALUE NO; DRAW SITE ART LINE; FIO2 80 %; OXYGEN DEVICE VENTILATOR; STAT NO; VENT SETTINGS SEE COMMENTS
[2016-06-25] MEDS: PANTOPRAZOLE SODIUM 40 MG VIAL IVP SCH (11:02)
[2016-06-25 11:48] LABS: ALKALINE PHOSPHATASE 80 U/L (45-117); ALT (GPT) 40 U/L (12-78); ANION GAP 7 MEQ/L (5-15); AST (GOT) 36 U/L (15-37); BICARBONATE 25.2 MEQ/L (21.0-32.0); BLOOD UREA NITROGEN 14 MG/DL (7-18); CHLORIDE 127 MEQ/L (98-107); GLOMERULAR FILTRATION RATE 85 ML/MIN (>89); MAGNESIUM 2.1 MG/DL (1.5-2.5); POTASSIUM 3.7 MEQ/L (3.5-5.1); TOTAL BILIRUBIN ADULT 0.9 MG/DL (0.2-1.0)
[2016-06-25 11:55] LABS: SODIUM (NA) 159 MEQ/L (136-145)
--- NOTE | 2016-06-25 12:29 | HHI.HCPN ---
Reason for visit a. To assist with evaluation and management of symptoms including: hypotension, dyspnea, pain. b. To assist medical decision maker(s) with: better understanding of current medical conditions; weighing benefits/burdens of medical treatment options; making medical treatment decisions. . Subjective/Interval History Patient seen and examined in ICU. Discussed with trauma team and nursing staff. Patient remains in critical condition in ICU. Sedated on mech vent. FiO2 70%, PEEP 12. On Levophed (12), Fentanyl (150), Diprivan (40) and Versed (8). Repeat CT head done 06/24/16 revealed extensive intraparenchymal, subarachnoid and subdural hemorrhage, size of the intraparenchymal hemorrhage has mildly increased when compared to previous study dated 06/21/16, the overall amount of subarachnoid hemorrhage and subdural hemorrhage is similar, decrease in the amount of falcine shift when compared to the prior exam. Chest x-ray diffuse edema vs. pneumonia. WBC 11.8, platelets 96. Sodium 158. Repeat CMP pending. . Family/friend interactions Spoke with Antonella to provide medical update. They indicate they were told CT head results were "terrible." Review CT results, indicated I have not spoken with neurosurgery to understand their interpretation of results. I explained I will speak with neurosurgery to determine thoughts regarding prognosis. Nurse asks friends for consent for surgery, they decline at this time indicating they want to be contacted the day of surgery to determine his condition prior. While they want to give him every chance to recover they do not want to give a "blanket consent" for surgery. They are asking about the risks of surgery and if his neuro status does not improve or not likely to improve, they are uncertain of the benefit of surgery on his leg. They are not outwardly declining surgery they are just requesting to be called for consent so they can make the best decisions from day to day. Questions answered. . Advance Directives Living Will: Copy in medical record Health Care Surrogate: Copy in medical record Durable Power of Transportation Security Officer: Completed, but not made available Advance Directive Specifics Date completed: 04/17/16 Health Care Surrogate(s): Designated Health Care Surrogate primary: Amandeep Birch and alternate: Corry Salazar. Documented care wishes: To summarize: If he has a terminal condition or is in a persistent vegetative state he would want life prolonging measures or procedures (artificial respiration. CPR, artificial nutrition and hydration) withheld or withdrawn. . Significant change in goals: FULL CODE. Continue aggressive care for now. . Objective Vital Signs Date Time Temp Pulse Resp B/P Pulse Ox O2 Delivery O2 Flow Rate FiO2 06/25/16 11:13 100 70 06/25/16 10:00 77 06/25/16 10:00 77 123/61 06/25/16 09:00 78 108/58 06/25/16 08:00 80 06/25/16 08:00 98.8 79 18 103/56 100 06/25/16 08:00 79 06/25/16 08:00 79 103/56 06/25/16 07:26 97 80 06/25/16 07:00 79 95/52 06/25/16 06:00 77 101/55 06/25/16 06:00 77 06/25/16 05:00 74 100/56 06/25/16 04:04 97 80 06/25/16 04:00 68 06/25/16 04:00 80 06/25/16 04:00 68 94/52 06/25/16 04:00 96.4 68 18 94/52 97 06/25/16 03:00 65 108/59 06/25/16 02:00 59 06/25/16 02:00 59 110/63 06/25/16 01:00 62 114/64 06/25/16 00:00 64 06/25/16 00:00 80 06/25/16 00:00 97.8 64 18 114/64 99 06/25/16 00:00 64 114/64 06/24/16 23:00 68 107/59 06/24/16 22:38 96 80 06/24/16 22:00 74 06/24/16 22:00 74 112/60 06/24/16 21:00 84 100/52 06/24/16 20:00 80 06/24/16 20:00 92 06/24/16 20:00 98.2 92 18 112/52 95 06/24/16 20:00 92 112/52 06/24/16 19:33 94 80 06/24/16 19:33 94 80 06/24/16 19:00 96 110/54 06/24/16 18:00 104 06/24/16 18:00 104 06/24/16 18:00 80 06/24/16 17:20 100.4 126 18 116/66 96 06/24/16 17:00 100.4 126 18 127/63 96 06/24/16 16:47 94 80 06/24/16 16:00 70 06/24/16 16:00 100.0 130 16 182/82 96 06/24/16 16:00 130 06/24/16 16:00 130 06/24/16 14:38 92 50 06/24/16 14:00 110 06/24/16 14:00 110 06/24/16 14:00 95 100 06/24/16 12:45 98.8 76 16 128/58 96 06/24/16 12:00 30 06/24/16 12:00 76 06/24/16 12:00 76 06/24/16 12:00 98.8 76 16 128/58 96 Intake & Output 06/25/16 06/25/16 07:00 19:00 Intake Total 3297 ml Output Total 3490 ml Balance -193 ml Intake IV Total 2638 ml Tube Feeding 349 ml Packed Cells 250 ml Other 60 ml Output Urine Total 3425 ml Drainage Total 65 ml # Bowel Movements 0 Physical Exam CONSTITUTIONAL/GENERAL: This is an adequately nourished patient, sedated on mech vent. TUBES/LINES/DRAINS: Ventriculostomy, KAY drain, ETT, OG to suction, a-line, left subclavian central line, PIV x 2 left and right, PIV right inner ankle, Guzman, SCD right. SKIN: Abrasions and bruising to face and head. Ecchymoses on upper extremities. Skin temperature appropriate. Not diaphoretic. HEAD: Ventriculostomy, left bone flap removed, tha in place. EYES: Eyes closed, bruising noted. ENT: Unable to assess hearing. Nose without bleeding or purulent drainage. Throat difficult to visualize due to tubes. CARDIOVASCULAR: Regular rate and rhythm without murmurs, gallops, or rubs. RESPIRATORY/CHEST: Symmetric, unlabored respirations. Clear to auscultation. Breath sounds equal bilaterally. No wheezes, rales, or rhonchi. GASTROINTESTINAL: Abdomen soft, non-tender, nondistended. No hepato-splenomegaly , or palpable masses. No guarding. Bowel sounds present. GENITOURINARY: Without palpable bladder distension. Guzman catheter in place. MUSCULOSKELETAL: Extremities with edema. PIN in left LE and traction. No mottling or clubbing. NEUROLOGICAL: Sedated. PSYCHIATRIC: Sedated. . Diagnostic Tests Laboratory Laboratory Tests Test 06/22/16 06/22/16 06/23/16 06/23/16 16:00 21:47 03:25 04:47 Sodium Level 159 MEQ/L 159 MEQ/L 158 MEQ/L (136-145) (136-145) (136-145) Serum Osmolality 323 MOSM/KG 321 MOSM/KG 321 MOSM/KG (275-295) (275-295) (275-295) White Blood Count 19.4 TH/MM3 (4.0-11.0) Red Blood Count 2.33 MIL/MM3 (4.50-5.90) Hemoglobin 7.3 GM/DL (13.0-17.0) Hematocrit 21.0 % (39.0-51.0) Mean Corpuscular Volume 90.0 FL (80.0-100.0) Mean Corpuscular Hemoglobin 31.5 PG (27.0-34.0) Mean Corpuscular Hemoglobin 35.0 % Concent (32.0-36.0) Red Cell Distribution Width 14.1 % (11.6-17.2) Platelet Count 91 TH/MM3 (150-450) Mean Platelet Volume 9.5 FL (7.0-11.0) Potassium Level 3.9 MEQ/L (3.5-5.1) Chloride Level 129 MEQ/L (98-107) Carbon Dioxide Level 19.6 MEQ/L (21.0-32.0) Anion Gap 9 MEQ/L (5-15) Blood Urea Nitrogen 16 MG/DL (7-18) Creatinine 0.84 MG/DL (0.60-1.30) Estimat Glomerular Filtration 79 ML/MIN (>89) Rate Random Glucose 130 MG/DL (74-106) Calcium Level 6.6 MG/DL (8.5-10.1) Protein Corrected Calcium 8.3 MG/DL (8.5-10.1) Total Protein 3.9 GM/DL (6.4-8.2) Blood Gas Puncture Site IDANIA Blood Gas Patient Temperature 98.6 Blood Gas HCO3 19 mmol/L (22-26) Blood Gas Base Excess -5.0 mmol/L (-2-2) Blood Gas Oxygen Saturation 97 % (90-100) Arterial Blood pH 7.39 (7.380-7.420) Arterial Blood Partial 32 mmHg (38-42) Pressure CO2 Arterial Blood Partial 166 mmHg Pressure O2 (61-120) Arterial Blood Oxygen Content 10.5 Vol % (12.0-20.0) Arterial Blood 1.1 % (0-4) Carboxyhemoglobin Arterial Blood Methemoglobin 0.9 % (0-2) Blood Gas Hemoglobin 7.4 G/DL (12.0-16.0) Oxygen Delivery Device VENTILATOR Blood Gas Ventilator Setting [facility]/1.0/+5 Blood Gas Inspired Oxygen 30 % Test 06/23/16 06/23/16 06/23/16 06/23/16 09:43 10:30 17:00 18:20 Blood Type O POSITIVE Crossmatch Leukocyte-Reduced Red Blood Cells Blood Bank Comment Sodium Level 157 MEQ/L 159 MEQ/L (136-145) (136-145) Serum Osmolality 318 MOSM/KG 322 MOSM/KG (275-295) (275-295) Blood Gas Puncture Site IDANIA Blood Gas Patient Temperature 98.6 Blood Gas HCO3 20 mmol/L (22-26) Blood Gas Base Excess -4.6 mmol/L (-2-2) Blood Gas Oxygen Saturation 97 % (90-100) Arterial Blood pH 7.37 (7.380-7.420) Arterial Blood Partial 35 mmHg (38-42) Pressure CO2 Arterial Blood Partial 146 mmHg Pressure O2 (61-120) Arterial Blood Oxygen Content 11.4 Vol % (12.0-20.0) Arterial Blood 1.6 % (0-4) Carboxyhemoglobin Arterial Blood Methemoglobin 0.9 % (0-2) Blood Gas Hemoglobin 8.1 G/DL (12.0-16.0) Oxygen Delivery Device VENT Blood Gas Ventilator Setting [facility]/5/ Blood Gas Inspired Oxygen 30 % Test 06/23/16 06/24/16 06/24/16 06/24/16 23:05 00:14 00:20 04:45 Sodium Level 162 MEQ/L (136-145) Serum Osmolality 325 MOSM/KG (275-295) Urine Specific [place] 1.008 (1.002-1.035) Urine Osmolality 370 MOSM/KG (300-1300) Blood Gas Puncture Site IDANIA Blood Gas Patient Temperature 98.6 Blood Gas HCO3 20 mmol/L (22-26) Blood Gas Base Excess -3.9 mmol/L (-2-2) Blood Gas Oxygen Saturation 93 % (90-100) Arterial Blood pH 7.38 (7.380-7.420) Arterial Blood Partial 35 mmHg (38-42) Pressure CO2 Arterial Blood Partial 76 mmHg Pressure O2 (61-120) Arterial Blood Oxygen Content 11.2 Vol % (12.0-20.0) Arterial Blood 1.5 % (0-4) Carboxyhemoglobin Arterial Blood Methemoglobin 0.8 % (0-2) Blood Gas Hemoglobin 8.5 G/DL (12.0-16.0) Oxygen Delivery Device VENTILATOR Blood Gas Ventilator Setting [facility]/550/1.0/+5 Blood Gas Inspired Oxygen 30 % Test 06/24/16 06/24/16 06/24/16 06/24/16 04:50 10:30 11:56 13:10 White Blood Count 14.2 TH/MM3 (4.0-11.0) Red Blood Count 2.59 MIL/MM3 (4.50-5.90) Hemoglobin 7.9 GM/DL (13.0-17.0) Hematocrit 23.2 % (39.0-51.0) Mean Corpuscular Volume 89.5 FL (80.0-100.0) Mean Corpuscular Hemoglobin 30.7 PG (27.0-34.0) Mean Corpuscular Hemoglobin 34.2 % Concent (32.0-36.0) Red Cell Distribution Width 14.7 % (11.6-17.2) Platelet Count 86 TH/MM3 (150-450) Mean Platelet Volume 9.3 FL (7.0-11.0) Sodium Level 159 MEQ/L (136-145) Potassium Level 3.6 MEQ/L (3.5-5.1) Chloride Level 129 MEQ/L (98-107) Carbon Dioxide Level 21.2 MEQ/L (21.0-32.0) Anion Gap 9 MEQ/L (5-15) Blood Urea Nitrogen 12 MG/DL (7-18) Creatinine 0.88 MG/DL (0.60-1.30) Estimat Glomerular Filtration 96 ML/MIN (>89) Rate Random Glucose 116 MG/DL (74-106) Serum Osmolality 323 MOSM/KG (275-295) Calcium Level 7.5 MG/DL (8.5-10.1) Blood Type O POSITIVE Antibody Screen NEGATIVE Crossmatch Leukocyte-Reduced Red Blood Cells Blood Bank Comment Prothrombin Time 11.4 SEC (9.8-11.6) Prothromb Time International 1.0 RATIO Ratio Activated Partial 32.0 SEC Thromboplast Time (24.3-30.1) Fibrinogen 447 mg/dL (227-377) Test 06/24/16 06/24/16 06/24/16 06/25/16 16:25 22:40 22:55 00:32 Blood Gas Puncture Site ART LINE ART LINE Blood Gas Patient Temperature 98.6 98.6 Blood Gas HCO3 23 mmol/L 22 mmol/L (22-26) (22-26) Blood Gas Base Excess -2.3 mmol/L -2.5 mmol/L (-2-2) (-2-2) Blood Gas Oxygen Saturation 92 % (90-100) 95 % (90-100) Arterial Blood pH 7.34 7.37 (7.380-7.420) (7.380-7.420) Arterial Blood Partial 43 mmHg (38-42) 40 mmHg (38-42) Pressure CO2 Arterial Blood Partial 69 mmHg 88 mmHg Pressure O2 (61-120) (61-120) Arterial Blood Oxygen Content 13.4 Vol % 12.1 Vol % (12.0-20.0) (12.0-20.0) Arterial Blood 1.3 % (0-4) 1.4 % (0-4) Carboxyhemoglobin Arterial Blood Methemoglobin 0.9 % (0-2) 0.8 % (0-2) Blood Gas Hemoglobin 10.3 G/DL 9.0 G/DL (12.0-16.0) (12.0-16.0) Oxygen Delivery Device VENTILATOR VENTILATOR Blood Gas Ventilator Setting PRVC/AC PRVC/AC Blood Gas Inspired Oxygen 80 % 80 % Hemoglobin 10.4 GM/DL (13.0-17.0) Hematocrit 30.4 % (39.0-51.0) Sodium Level 158 MEQ/L (136-145) Potassium Level 3.2 MEQ/L (3.5-5.1) Chloride Level 124 MEQ/L (98-107) Carbon Dioxide Level 25.0 MEQ/L (21.0-32.0) Anion Gap 9 MEQ/L (5-15) Blood Urea Nitrogen 13 MG/DL (7-18) Creatinine 0.88 MG/DL (0.60-1.30) Estimat Glomerular Filtration 96 ML/MIN (>89) Rate Random Glucose 152 MG/DL (74-106) Serum Osmolality 322 MOSM/KG (275-295) Calcium Level 7.6 MG/DL (8.5-10.1) Test 06/25/16 06/25/16 05:00 09:39 White Blood Count 11.8 TH/MM3 (4.0-11.0) Red Blood Count 3.56 MIL/MM3 (4.50-5.90) Hemoglobin 10.5 GM/DL (13.0-17.0) Hematocrit 30.5 % (39.0-51.0) Mean Corpuscular Volume 85.7 FL (80.0-100.0) Mean Corpuscular Hemoglobin 29.4 PG (27.0-34.0) Mean Corpuscular Hemoglobin 34.3 % Concent (32.0-36.0) Red Cell Distribution Width 17.1 % (11.6-17.2) Platelet Count 96 TH/MM3 (150-450) Mean Platelet Volume 8.9 FL (7.0-11.0) Neutrophils (%) (Auto) 88.9 % (16.0-70.0) Lymphocytes (%) (Auto) 4.3 % (9.0-44.0) Monocytes (%) (Auto) 6.6 % (0.0-8.0) Eosinophils (%) (Auto) 0.1 % (0.0-4.0) Basophils (%) (Auto) 0.1 % (0.0-2.0) Neutrophils # (Auto) 10.5 TH/MM3 (1.8-7.7) Lymphocytes # (Auto) 0.5 TH/MM3 (1.0-4.8) Monocytes # (Auto) 0.8 TH/MM3 (0-0.9) Eosinophils # (Auto) 0.0 TH/MM3 (0-0.4) Basophils # (Auto) 0.0 TH/MM3 (0-0.2) CBC Comment AUTO DIFF Differential Total Cells 100 Counted Neutrophils % (Manual) 47 % (16-70) Band Neutrophils % 38 % (0-6) Lymphocytes % 7 % (9-44) Monocytes % 6 % (0-8) Neutrophils # (Manual) 10.3 TH/MM3 (1.8-7.7) Metamyelocytes 1 % (0-1) Myelocytes 1 % (0-0) Differential Comment FINAL DIFF MANUAL Platelet Estimate LOW (NORMAL) Platelet Morphology Comment NORMAL (NORMAL) Blood Gas Puncture Site ART LINE Blood Gas Patient Temperature 98.6 Blood Gas HCO3 22 mmol/L (22-26) Blood Gas Base Excess -2.7 mmol/L (-2-2) Blood Gas Oxygen Saturation 97 % (90-100) Arterial Blood pH 7.38 (7.380-7.420) Arterial Blood Partial 37 mmHg (38-42) Pressure CO2 Arterial Blood Partial 141 mmHg Pressure O2 (61-120) Arterial Blood Oxygen Content 14.3 Vol % (12.0-20.0) Arterial Blood 1.0 % (0-4) Carboxyhemoglobin Arterial Blood Methemoglobin 1.1 % (0-2) Blood Gas Hemoglobin 10.3 G/DL (12.0-16.0) Oxygen Delivery Device VENTILATOR Blood Gas Ventilator Setting SEE COMMENTS Blood Gas Inspired Oxygen 80 % Result Diagram: 06/25/16 0500 06/25/16 0032 Imaging Last Impressions Chest X-Ray 06/25/16 0600 Signed Impressions: Service Date/Time: Saturday, June 25, 2016 04:38 - CONCLUSION: 1. Diffuse edema versus pneumonia. The findings are similar to the prior exam. Amandeep Krishna MD Head CT 06/24/16 0000 Signed Impressions: Service Date/Time: Friday, June 24, 2016 13:37 - CONCLUSION: 1. There is extensive intraparenchymal, subarachnoid and subdural hemorrhage evident as described above. The size of the intraparenchymal hemorrhage has mildly increased when compared to previous study dated 06/21/16. The overall amount of subarachnoid hemorrhage and subdural hemorrhage is similar. There is a decrease in the amount of falcine shift when compared to the prior exam. Lee Helton MD Thoracic Spine CT 06/21/16 1012 Signed Impressions: Service Date/Time: Tuesday, June 21, 2016 10:20 - CONCLUSION: 1. No acute fracture or subluxation of the thoracic spine. 2. Acute nondisplaced fractures involving the posterior aspect of the left 10th and 11th ribs. Omar Maravilla MD Pelvis X-Ray 06/21/16 1012 Signed Impressions: Service Date/Time: Tuesday, June 21, 2016 09:59 - CONCLUSION: 1. There is no evidence of acute fracture. Amandeep Krishna MD Maxillofacial CT 06/21/16 1012 Signed Impressions: Service Date/Time: Tuesday, June 21, 2016 10:24 - CONCLUSION: 1. Acute fracture involving the nasal bones with extensive soft tissue swelling surrounding the nose. 2. Small fluid levels within the right maxillary and sphenoid sinuses as well as mucosal thickening involving the ethmoid air cell bilaterally and left maxillary sinus. 3. Opacification of the mastoid air cells bilaterally suggesting mastoiditis. Omar Maravilla MD Lumbar Spine CT 06/21/16 1012 Signed Impressions: Service Date/Time: Tuesday, June 21, 2016 10:20 - CONCLUSION: No acute disease. Omar Maravilla MD Chest CT 06/21/16 1012 Signed Impressions: Service Date/Time: Tuesday, June 21, 2016 10:24 - CONCLUSION: Subtle acute nondisplaced fractures involving the posterior aspect of the left 10th and 11th ribs. Omar Maravilla MD Cervical Spine CT 06/21/16 1012 Signed Impressions: Service Date/Time: Tuesday, June 21, 2016 10:23 - CONCLUSION: 1. Degenerative disc disease at C6-7. 2. No acute fracture or prevertebral soft tissue swelling. Omar Maravilla MD Abdomen/Pelvis CT 06/21/16 1012 Signed Impressions: Service Date/Time: Tuesday, June 21, 2016 10:24 - CONCLUSION: Acute fracture involving the junction of the right inferior pubic ramus and ischium. Omar Maravilla MD Femur X-Ray 06/21/16 0000 Signed Impressions: Service Date/Time: Tuesday, June 21, 2016 09:59 - CONCLUSION: Acute comminuted displaced fracture involving the left mid femur. Omar Maravilla MD Procedures * 06/21/16 - placement of traction pin, closed reduction left femur fracture. * 06/21/16 - Left frontotemporoparietal craniotomy for evacuation of subdural hemorrhage, left decompressive craniectomy with expansive duraplasty, right frontal bur hole ventriculostomy placement. Assessment and Plan Disease Oriented Problem List: (1) Major neurocognitive disorder as late effect of traumatic brain injury without behavioral disturbance (2) Closed fracture of left femur (3) Blunt head trauma (4) Coma (5) Acute respiratory failure (6) Acute subdural hematoma Symptom Scale: (1) Hypotension 0-10 Scale: Unable to quantify Comment: On Levo (2) Dyspnea 0-10 Scale: Unable to quantify (3) Pain 0-10 Scale: Unable to quantify Comment: Potential pain sources include recent traumatic brain injury, multiple fractures, intubation, etc...On Fentanyl and Versed. . Pertinent Non-Medical Issues Psychosocial: Single. No children. Spiritual: Unknown. Legal: Living Will and designation of HCS on chart. Designated Health Care Surrogate primary: Amandeep Birch and alternate: Corry Salazar (both are here from [place]). Ethical issues impacting care: No known concerns at this time. . Important Contacts * Amandeep Birch, primary HCS/ friend: [phone] * Corry Salazar, alternate HCS/ friend: [phone] . Prognosis Given severe traumatic brain injury suffered from skydiving fall overall prognosis appears poor. . Code Status: Full Code Plan * Living Will and designation of HCS on chart. Designated Health Care Surrogate primary: Amandeep Birch and alternate: Corry Salazar (both are here from [place]). Sent to [facility] to be scanned into EMR. * FULL CODE * Goals remain appropriately aggressive at this time including FULL CODE. * HCS requests to be called for consent on the day of possible leg surgery, they want to take into consideration his condition when surgery is being considered. * Will attempt to speak with neurosurgery for further prognostication and interpretation of repeat CT head results. * Discussed with trauma team, nursing staff and community midwife. * SYMPTOMS: Pain: potential sources include skydiving fall, TBI, recent surgeries, multiple fractures, intubation. Dyspnea: on mech vent. Hypotension: On Levo (8) and Vaso (0.03). No new medication recommendations at this time. * Palliative care will continue to follow to assist with symptom management, clarification of treatment goals as needed, communication with HCS and provide support. . KETAN LE Jun 25, 2016 12:29
--- NOTE | 2016-06-25 14:50 | MG ---
cc: GILBERT RAMIREZ Lab No: [id number] Date: 06/25/2016 Age: Sex: M TECHNIQUE This is a 17-channel EEG. DESCRIPTION The patient's Versed was turned off prior to the EEG and the Diprivan was turned off as well. The background rhythm reveals severe slowing in the delta frequency approximately 1-2 Hz. Amplitude is attenuated at 2-5 microvolts. There is a burst suppression pattern as well with bursts occurring every 5-10 seconds. There are no lateralizing features. Deep tactile stimulation was done with no change in background rhythm. INTERPRETATION Abnormal study consistent with a severe encephalopathy given the burst suppression pattern. MD AARON Puentes/LEISA /2:38 PM /2:47 PM
[2016-06-25] MEDS ORDERED: LIDOCAINE 1%/EPINEPHrine 1:100,000 SOLN 20 ML VIAL INFIL ONE (15:15)
[2016-06-25] MEDS: FOSPHENYTOIN INJ 100 MGPE in SODIUM CHLORIDE 0.9% INJ 50 ML IV SCH ×2 (15:48→21:40)
[2016-06-25] MEDS ORDERED: LIDOCAINE 1%/EPINEPHrine 1:100,000 SOLN 30 ML VIAL INFIL ONE (16:15)
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
[2016-06-25 18:10] LABS: BLOOD GAS BASE EXCESS -1.9 mmol/L (-2-2); BLOOD GAS CARBOXYHEMOGLOBIN 1.1 % (0-4); BLOOD GAS HCO3 22 mmol/L (22-26); BLOOD GAS O2 HGB SATURATION 95 % (90-100); BLOOD GAS OXYGEN CONTENT 13.3 Vol % (12.0-20.0); BLOOD GAS PCO2 39 mmHg (38-42); BLOOD GAS PO2 86 mmHg (61-120); BLOOD GAS TOTAL HGB 9.9 G/DL (12.0-16.0); CRITICAL VALUE NO; DRAW SITE ART LINE; FIO2 60 %; OXYGEN DEVICE VENTILATOR; STAT NO; TEMP CORR TO 98.6; ULNAR PULSE PRESENT; VENT SETTINGS PRVC/AC
[2016-06-26] VITALS (28 sets, daily range): BP systolic 108–134; BP diastolic 52–86; PULSE 76–104; RESP 18–20; TEMP 98.2–100.6; O2SAT 96–100
[2016-06-26] MEDS: fentaNYL 2,500 MCG/NS 250 ML IV SCH ×2 (00:13→07:09)
[2016-06-26] MEDS: NOREPINEPHRINE INJ 4 MG in SODIUM CHLOR 0.9% 250 ML INJ 250 ML IV SCH ×3 (01:33→22:51)
[2016-06-26] MEDS: RESP: ALBUTEROL 2.5 MG/IPRATROPIUM 0.5 MG NEB (SCH) NEB ×4 (03:41→21:24)
[2016-06-26] MEDS: CHLORHEXIDINE GLUCONATE 2 % 1 PACK (2 CLOTHS) TOP SCH (04:00)
[2016-06-26 04:18] LABS: AUTOMATED NEUTROPHIL # 13.5 TH/MM3 (1.8-7.7); BASOPHIL # 0.1 TH/MM3 (0-0.2); BASOPHIL % 0.8 % (0.0-2.0); EOSINOPHIL # 0.1 TH/MM3 (0-0.4); EOSINOPHIL % 0.8 % (0.0-4.0); HEMATOCRIT 27.2 % (39.0-51.0); HEMO FLAGS DIFF FINAL; LYMPH % 2.6 % (9.0-44.0); LYMPHOCYTE # 0.4 TH/MM3 (1.0-4.8); MEAN CELL VOLUME 85.6 FL (80.0-100.0); MEAN CORPUSCULAR HEMOGLOBIN 29.2 PG (27.0-34.0); MEAN CORPUSCULAR HGB CONC 34.1 % (32.0-36.0); MONO % 8.3 % (0.0-8.0); NEUT % 87.5 % (16.0-70.0); PLATELET COUNT 114 TH/MM3 (150-450); RED BLOOD COUNT 3.18 MIL/MM3 (4.50-5.90); RED CELL DISTRIBUTION WIDTH 17.2 % (11.6-17.2); WHITE BLOOD COUNT 15.5 TH/MM3 (4.0-11.0)
--- NOTE | 2016-06-26 05:02 | RADRPT ---
EXAM DATE/TIME: 06/26/2016 04:26 [facility] COMPARISON: CHEST SINGLE AP, June 25, 2016, 4:38. INDICATIONS : Shortness of breath. MEDICAL HISTORY : Non-responsive SURGICAL HISTORY : Non-responsive ENCOUNTER: Subsequent ACUITY: 4 - 6 days PAIN SCORE: Non-responsive. LOCATION: Bilateral chest FINDINGS: The cardiac silhouette is normal in transverse diameter. Support lines and tubes are in satisfactory position. There is diffuse right-sided pneumonia with minimal left basilar opacity. CONCLUSION: 1. Diffuse right-sided edema versus pneumonia. There has been no significant change when compared to the prior exam. Amandeep Krishna MD on June 26, 2016 at 5:00 Board Certified Radiologist. This report was verified electronically.
[2016-06-26 05:18] LABS: ALKALINE PHOSPHATASE 61 U/L (45-117); ALT (GPT) 32 U/L (12-78); ANION GAP 8 MEQ/L (5-15); AST (GOT) 24 U/L (15-37); BICARBONATE 25.1 MEQ/L (21.0-32.0); BLOOD UREA NITROGEN 16 MG/DL (7-18); CHLORIDE 127 MEQ/L (98-107); GLOMERULAR FILTRATION RATE 103 ML/MIN (>89); MAGNESIUM 2.2 MG/DL (1.5-2.5); TOTAL BILIRUBIN ADULT 0.8 MG/DL (0.2-1.0)
[2016-06-26 05:29] LABS: POTASSIUM 2.8 MEQ/L (3.5-5.1); SODIUM (NA) 160 MEQ/L (136-145)
[2016-06-26 05:54] LABS: BLOOD GAS BASE EXCESS -0.9 mmol/L (-2-2); BLOOD GAS CARBOXYHEMOGLOBIN 1.1 % (0-4); BLOOD GAS HCO3 23 mmol/L (22-26); BLOOD GAS O2 HGB SATURATION 97 % (90-100); BLOOD GAS OXYGEN CONTENT 13.4 Vol % (12.0-20.0); BLOOD GAS PCO2 36 mmHg (38-42); BLOOD GAS PO2 164 mmHg (61-120); BLOOD GAS TOTAL HGB 9.6 G/DL (12.0-16.0); CRITICAL VALUE NO; OXYGEN DEVICE VENTILATOR; TEMP CORR TO 98.6
[2016-06-26 05:55] LABS: DRAW SITE ALINE; FIO2 60 %; STAT NO
[2016-06-26] MEDS: INSULIN NovoLIN REGULAR SUPPLEMENTAL SCALE SQ SCH ×4 (06:00→23:04)
[2016-06-26] MEDS: PIPERACIL-TAZO 4.5 GM PREMIX 100 ML IV SCH ×4 (06:12→23:03)
[2016-06-26] MEDS: PROPOFOL 1000 MG/100 ML INJ 100 ML IV SCH ×2 (06:56→11:34)
[2016-06-26] MEDS: POTASSIUM CHLOR 20 MEQ PREMIX 100 ML IV PRN ×4 (06:57→13:00)
--- NOTE | 2016-06-26 08:03 | PD.ORT.PN ---
Subjective Subjective Remarks s/p application of femoral traction pin and skeletal traction underwent bone flap of head this weekend prognosis has worsened and POA leaning towards palliative care Objective Vitals Vital Signs Date Time Temp Pulse Resp B/P Pulse Ox O2 Delivery O2 Flow Rate FiO2 06/26/16 07:38 100 60 06/26/16 07:31 100 50 06/26/16 06:00 84 06/26/16 06:00 84 124/54 06/26/16 05:00 76 108/86 06/26/16 04:00 78 126/60 06/26/16 04:00 78 06/26/16 04:00 98.2 78 18 126/60 100 06/26/16 04:00 60 06/26/16 03:42 100 60 06/26/16 03:00 79 129/62 06/26/16 02:00 80 132/62 06/26/16 02:00 80 06/26/16 01:00 81 127/57 06/26/16 00:00 60 06/26/16 00:00 84 126/56 06/26/16 00:00 98.6 87 18 126/56 100 06/26/16 00:00 84 06/25/16 23:53 100 60 06/25/16 23:00 84 129/58 06/25/16 22:00 84 136/62 06/25/16 22:00 84 06/25/16 21:00 89 128/64 06/25/16 20:00 60 06/25/16 20:00 87 127/59 06/25/16 20:00 98.6 87 18 127/59 100 06/25/16 20:00 87 06/25/16 19:42 100 60 06/25/16 19:00 89 121/54 06/25/16 18:00 90 126/56 06/25/16 18:00 90 06/25/16 17:00 90 128/57 06/25/16 16:00 60 06/25/16 16:00 90 06/25/16 16:00 90 188/52 06/25/16 16:00 98.1 90 18 118/52 97 06/25/16 15:45 97 60 06/25/16 15:45 96 60 06/25/16 15:00 89 124/53 06/25/16 14:00 84 116/50 06/25/16 14:00 84 06/25/16 13:00 82 118/53 06/25/16 12:00 80 06/25/16 12:00 98.1 84 18 110/48 100 06/25/16 12:00 84 110/48 06/25/16 12:00 84 06/25/16 11:13 100 70 06/25/16 11:00 77 116/55 06/25/16 10:00 77 06/25/16 10:00 77 123/61 06/25/16 09:00 78 108/58 06/25/16 08:00 80 06/25/16 08:00 98.8 79 18 103/56 100 06/25/16 08:00 79 06/25/16 08:00 79 103/56 I/O 06/25/16 06/25/16 06/25/16 06/26/16 06/26/16 06/26/16 07:00 15:00 23:00 07:00 15:00 23:00 Intake Total 1689 ml 1547 ml 1285 ml 879 ml Output Total 1337 ml 562 ml 545 ml 428 ml Balance 352 ml 985 ml 740 ml 451 ml Intake IV Total 1541 ml 1517 ml 1127 ml 734 ml Tube Feeding 148 ml 30 ml 158 ml 145 ml Output Urine Total 1325 ml 550 ml 500 ml 400 ml Gastric Drainage Total 0 ml Drainage Total 12 ml 12 ml 45 ml 28 ml # Bowel Movements 0 0 Result Diagram: 06/26/16 0400 06/26/16 0400 Imaging Last 24 hours Impressions Chest X-Ray 06/22/16 0000 Signed Impressions: Service Date/Time: Wednesday, June 22, 2016 04:28 - CONCLUSION: Support tubes appropriately positioned as above. Lungs remain clear. Prince Valdez MD Procedures Placement of traction pin, closed reduction of left femur fracture (06/21/16) Objective Remarks Bilateral lower extremities cool to touch and pale, symmetric. LLE in skeletal traction. Pin sites clean with mild bloody drainage on dressing. Good cap refill. 2+ dorsalis pedis. Unable to assess motor/neurovascular status due to sedation/intubation. Assessment & Plan Problem List: (1) Closed fracture of left femur (2) Acute subdural hematoma (3) Blunt head trauma (4) Coma (5) Acute respiratory failure Assessment and Plan s/p left femur fracture with skeletal traction -maintain traction -pin care -will await medical decision on care before any surgery done Yehuda Kay Jun 26, 2016 08:03
[2016-06-26] MEDS: FOSPHENYTOIN INJ 100 MGPE in SODIUM CHLORIDE 0.9% INJ 50 ML IV SCH ×2 (08:04→21:33)
[2016-06-26] MEDS: levETIRAcetam 1000 MG INJ 100 ML IV SCH ×2 (08:04→21:17)
[2016-06-26] MEDS: DOCUSATE SODIUM 100 MG CAP PO SCH ×2 (08:04→21:17)
[2016-06-26] MEDS: SODIUM CHLORIDE 0.9% FLUSH 5 ML FLUSH IV FLUSH SCH ×2 (08:05→21:34)
[2016-06-26] MEDS: POTASSIUM PHOSPHATE INJ 30 MMOL in SODIUM CHLOR 0.9% 250 ML INJ 250 ML IV PRN ×2 (08:15→21:17)
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
[2016-06-26] MEDS: SODIUM CHLOR 0.9% 1000 ML INJ 1,000 ML IV SCH (10:00)
[2016-06-26] MEDS: DEXT 5%-NACL 0.45% 1000 ML INJ 1,000 ML IV SCH ×2 (10:58→22:53)
[2016-06-26] MEDS: PANTOPRAZOLE SODIUM 40 MG VIAL IVP SCH (11:24)
--- NOTE | 2016-06-26 12:40 | HHI.PR ---
Neuropsych Emotional Emotional: UnabletoAssess: Emotional, Anxious/Fearful, Depressed/Sad, Hostile/ Resentful, Irritable/Angry/Frustrate, Labile, Constricted/Blunted Behavior Behavior: Unable to Asses: Behavior, Coping/Acceptance, Cooperative w/ Treatment, Motivation, Frustration Tolerance/[place], Impulsive/Agitated, Suicidal/ Homicidal Risk Cognitive Cognitive: Unable to Asses: Cognitive, Attention/Concentration, Confused/ Orientation, Insight/Awareness, Judgement/Problem-Solving, Memory Psychosocial Psychosocial: Intact: Psychosocial, Family/Other Adjustment, Realistic Expectation, Unable to Asses: Self-Esteem/Confidence Progress Notes/Response to Tx Contents of Sessions: Level of Consciousness Time with Patient: 30 minutes Premorbid psychological status Premorbid Cognitive, Emotional and Behavioral Status: Stable 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 He has no psychiatric difficulties, as described above. Substance abuse history was unremarkable. Behavioral Reactions of Patient and Family/Support System: Tenuous. The patients family is experiencing ongoing issues of adjustment given the nature of the injury, and this aspect of recovery will require ongoing monitoring. Emotional/Behavioral Status of Patient and Family/Support System: Tenuous. Pertinent issues, if appropriate to this patients clinical care, are described in detail above. Maximizing acute care outcome It is recommended that the patient be monitored for emergent behavioral impulsivity as the medical condition evolves. This patients neuropathological challenges may limit their rehabilitation potential going forward, and these challenges will require specialized therapeutic skills to maximize outcome. Additionally, the patients family is experiencing ongoing issues of adjustment given the traumatic nature of the injury, and they will need ongoing psychological assistance. Anticipated Problems Ongoing areas of concern will include behavioral impulsivity, lack of insight and judgment, which is expected to improve with time and treatment. Treatment Plan This clinician will continue to follow with you throughout the course of this patients rehabilitation treatment, and I will be available to meet with the patients family/support system to facilitate their understanding and the ongoing care of their family member. The goals of neuropsychological intervention shall be both educational and supportive to the family/support system as is deemed clinically appropriate. [facility] Level: I:No response-total assistance Diagnosis: (1) Major neurocognitive disorder as late effect of traumatic brain injury without behavioral disturbance Status: Acute Progress Note Narrative Ongoing follow-up of patient, both within the context of trauma rounds and bedside. I had the opportunity to discuss neurobehavioral recovery issues with , who expressed that the patient had specific wishes concerning utilization of life sustaining support in light of a catastrophic injury. I deferred the answer to this question, and told her that I would bring this up with the patient's attending physician. I will continue to follow with you. Tristan Duffy PhD Jun 26, 2016 12:40
[2016-06-26] MEDS: ACETAMINOPHEN 1000 MG/100 ML VIAL IV PRN ×2 (16:56→23:03)
--- NOTE | 2016-06-26 17:25 | HHI.HCPN ---
Reason for visit a. To assist with evaluation and management of symptoms including: hypotension, dyspnea, pain. b. To assist medical decision maker(s) with: better understanding of current medical conditions; weighing benefits/burdens of medical treatment options; making medical treatment decisions. . (KETAN LE) Subjective/Interval History Patient seen and examined in ICU. No friends at bedside. Discussed with nursing staff. Patient is off propofol and Versed, on fentanyl 100mcg. Remains on Levophed. Remains on mechanical vent, FI 02 50%, PEEP 8. Patient unresponsive. No withdraw to noxious stimuli. Positive cough and breathing over vent per nursing staff. Tmax 100.6, ice packs in place. Intermittent tachycardia. Blood cultures pending. Chest x-ray diffuse right-sided edema versus pneumonia, no significant change. WBC 15.5, hemoglobin 9.3, hematocrit 27.2, platelets 114. Sodium 156. Serum osmolality 330. . Family/friend interactions No friends at bedside, palliative care number previously provided. . (KETAN LE) Advance Directives Living Will: Copy in medical record Health Care Surrogate: Copy in medical record Durable Power of Alarm Operator: Completed, but not made available (KETAN LE) Advance Directive Specifics Date completed: 04/17/16 Health Care Surrogate(s): Designated Health Care Surrogate primary: Amandeep Birch and alternate: Corry Salazar. Documented care wishes: To summarize: If he has a terminal condition or is in a persistent vegetative state he would want life prolonging measures or procedures (artificial respiration. CPR, artificial nutrition and hydration) withheld or withdrawn. . Significant change in goals: FULL CODE. Desires continued aggressive care at this time. . (KETAN LE) Objective Vital Signs Date Time Temp Pulse Resp B/P Pulse Ox O2 Delivery O2 Flow Rate FiO2 06/26/16 16:00 50 06/26/16 16:00 102 127/61 06/26/16 16:00 102 06/26/16 16:00 100.6 102 20 127/61 98 06/26/16 15:17 98 50 06/26/16 15:17 98 50 06/26/16 15:00 101 124/57 06/26/16 14:00 101 130/60 06/26/16 14:00 101 2/15/17 13:00 95 118/55 06/26/16 12:00 95 124/54 06/26/16 12:00 95 06/26/16 12:00 99.0 95 18 124/54 99 06/26/16 12:00 50 06/26/16 11:08 100 50 06/26/16 11:00 91 114/54 06/26/16 10:00 85 116/56 06/26/16 10:00 85 06/26/16 09:00 84 116/56 06/26/16 08:00 88 122/52 06/26/16 08:00 90 06/26/16 08:00 50 06/26/16 08:00 98.6 88 18 122/52 100 06/26/16 07:38 100 60 06/26/16 07:31 100 50 06/26/16 07:00 92 134/54 06/26/16 06:00 84 06/26/16 06:00 84 124/54 06/26/16 05:00 76 108/86 06/26/16 04:00 78 126/60 06/26/16 04:00 78 06/26/16 04:00 98.2 78 18 126/60 100 06/26/16 04:00 60 06/26/16 03:42 100 60 06/26/16 03:00 79 129/62 06/26/16 02:00 80 132/62 06/26/16 02:00 80 06/26/16 01:00 81 127/57 06/26/16 00:00 60 06/26/16 00:00 84 126/56 06/26/16 00:00 98.6 87 18 126/56 100 06/26/16 00:00 84 06/25/16 23:53 100 60 06/25/16 23:00 84 129/58 06/25/16 22:00 84 136/62 06/25/16 22:00 84 06/25/16 21:00 89 128/64 06/25/16 20:00 60 06/25/16 20:00 87 127/59 06/25/16 20:00 98.6 87 18 127/59 100 06/25/16 20:00 87 06/25/16 19:42 100 60 2/14/17 19:00 89 121/54 06/25/16 18:00 90 126/56 06/25/16 18:00 90 Intake & Output 06/26/16 06/26/16 07:00 19:00 Intake Total 2164 ml 1880 ml Output Total 973 ml 494 ml Balance 1191 ml 1386 ml Intake IV Total 1861 ml 1516 ml Tube Feeding 303 ml 164 ml Other 200 ml Output Urine Total 900 ml 450 ml Gastric Drainage Total 0 ml Drainage Total 73 ml 44 ml # Bowel Movements 0 Physical Exam CONSTITUTIONAL/GENERAL: This is an adequately nourished patient, sedated on [facility] vent. TUBES/LINES/DRAINS: Ventriculostomy, KAY drain, ETT, OG to suction, left subclavian central line, PIV x 2 left and right, PIV right inner ankle, Guzman, SCD right. SKIN: Abrasions and bruising to face and head. Ecchymoses on upper extremities. Skin temperature appropriate. Not diaphoretic. HEAD: Ventriculostomy, left bone flap removed, tha in place. EYES: Eyes closed. ENT: Unable to assess hearing. Nose without bleeding or purulent drainage. Throat difficult to visualize due to tubes. CARDIOVASCULAR: mild tachycardia. RESPIRATORY/CHEST: Symmetric, unlabored respirations on vent. Clear to auscultation. Breath sounds equal bilaterally. No wheezes, rales, or rhonchi. GASTROINTESTINAL: Abdomen soft, non-tender, nondistended. Bowel sounds present. GENITOURINARY: Without palpable bladder distension. Guzman catheter in place. MUSCULOSKELETAL: Extremities with edema. PIN in left LE/ traction. No mottling or clubbing. NEUROLOGICAL: Sedated. PSYCHIATRIC: Sedated. . (KETAN LE-C) Diagnostic Tests Laboratory Laboratory Tests Test 06/23/16 06/23/16 06/24/16 06/24/16 18:20 23:05 00:14 00:20 Blood Gas Puncture Site IDANIA Blood Gas Patient Temperature 98.6 Blood Gas HCO3 20 mmol/L (22-26) Blood Gas Base Excess -4.6 mmol/L (-2-2) Blood Gas Oxygen Saturation 97 % (90-100) Arterial Blood pH 7.37 (7.380-7.420) Arterial Blood Partial 35 mmHg (38-42) Pressure CO2 Arterial Blood Partial 146 mmHg Pressure O2 (61-120) Arterial Blood Oxygen Content 11.4 Vol % (12.0-20.0) Arterial Blood 1.6 % (0-4) Carboxyhemoglobin Arterial Blood Methemoglobin 0.9 % (0-2) Blood Gas Hemoglobin 8.1 G/DL (12.0-16.0) Oxygen Delivery Device VENT Blood Gas Ventilator Setting [facility]/500/5/ Blood Gas Inspired Oxygen 30 % Sodium Level 162 MEQ/L (136-145) Serum Osmolality 325 MOSM/KG (275-295) Urine Specific [place] 1.008 (1.002-1.035) Urine Osmolality 370 MOSM/KG (300-1300) Test 06/24/16 06/24/16 06/24/16 06/24/16 04:45 04:50 10:30 11:56 Blood Gas Puncture Site IDANIA Blood Gas Patient Temperature 98.6 Blood Gas HCO3 20 mmol/L (22-26) Blood Gas Base Excess -3.9 mmol/L (-2-2) Blood Gas Oxygen Saturation 93 % (90-100) Arterial Blood pH 7.38 (7.380-7.420) Arterial Blood Partial 35 mmHg (38-42) Pressure CO2 Arterial Blood Partial 76 mmHg Pressure O2 (61-120) Arterial Blood Oxygen Content 11.2 Vol % (12.0-20.0) Arterial Blood 1.5 % (0-4) Carboxyhemoglobin Arterial Blood Methemoglobin 0.8 % (0-2) Blood Gas Hemoglobin 8.5 G/DL (12.0-16.0) Oxygen Delivery Device VENTILATOR Blood Gas Ventilator Setting [facility]/550/1.0/+5 Blood Gas Inspired Oxygen 30 % White Blood Count 14.2 TH/MM3 (4.0-11.0) Red Blood Count 2.59 MIL/MM3 (4.50-5.90) Hemoglobin 7.9 GM/DL (13.0-17.0) Hematocrit 23.2 % (39.0-51.0) Mean Corpuscular Volume 89.5 FL (80.0-100.0) Mean Corpuscular Hemoglobin 30.7 PG (27.0-34.0) Mean Corpuscular Hemoglobin 34.2 % Concent (32.0-36.0) Red Cell Distribution Width 14.7 % (11.6-17.2) Platelet Count 86 TH/MM3 (150-450) Mean Platelet Volume 9.3 FL (7.0-11.0) Sodium Level 159 MEQ/L (136-145) Potassium Level 3.6 MEQ/L (3.5-5.1) Chloride Level 129 MEQ/L (98-107) Carbon Dioxide Level 21.2 MEQ/L (21.0-32.0) Anion Gap 9 MEQ/L (5-15) Blood Urea Nitrogen 12 MG/DL (7-18) Creatinine 0.88 MG/DL (0.60-1.30) Estimat Glomerular Filtration 96 ML/MIN (>89) Rate Random Glucose 116 MG/DL (74-106) Serum Osmolality 323 MOSM/KG (275-295) Calcium Level 7.5 MG/DL (8.5-10.1) Blood Type O POSITIVE Antibody Screen NEGATIVE Crossmatch Leukocyte-Reduced Red Blood Cells Blood Bank Comment Test 06/24/16 06/24/16 06/24/16 06/24/16 13:10 16:25 22:40 22:55 Prothrombin Time 11.4 SEC (9.8-11.6) Prothromb Time International 1.0 RATIO Ratio Activated Partial 32.0 SEC Thromboplast Time (24.3-30.1) Fibrinogen 447 mg/dL (227-377) Blood Gas Puncture Site ART LINE ART LINE Blood Gas Patient Temperature 98.6 98.6 Blood Gas HCO3 23 mmol/L 22 mmol/L (22-26) (22-26) Blood Gas Base Excess -2.3 mmol/L -2.5 mmol/L (-2-2) (-2-2) Blood Gas Oxygen Saturation 92 % (90-100) 95 % (90-100) Arterial Blood pH 7.34 7.37 (7.380-7.420) (7.380-7.420) Arterial Blood Partial 43 mmHg (38-42) 40 mmHg (38-42) Pressure CO2 Arterial Blood Partial 69 mmHg 88 mmHg Pressure O2 (61-120) (61-120) Arterial Blood Oxygen Content 13.4 Vol % 12.1 Vol % (12.0-20.0) (12.0-20.0) Arterial Blood 1.3 % (0-4) 1.4 % (0-4) Carboxyhemoglobin Arterial Blood Methemoglobin 0.9 % (0-2) 0.8 % (0-2) Blood Gas Hemoglobin 10.3 G/DL 9.0 G/DL (12.0-16.0) (12.0-16.0) Oxygen Delivery Device VENTILATOR VENTILATOR Blood Gas Ventilator Setting PRVC/AC PRVC/AC Blood Gas Inspired Oxygen 80 % 80 % Hemoglobin 10.4 GM/DL (13.0-17.0) Hematocrit 30.4 % (39.0-51.0) Test 06/25/16 06/25/16 06/25/16 06/25/16 00:32 05:00 09:39 10:30 Sodium Level 158 MEQ/L 159 MEQ/L (136-145) (136-145) Potassium Level 3.2 MEQ/L 3.7 MEQ/L (3.5-5.1) (3.5-5.1) Chloride Level 124 MEQ/L 127 MEQ/L (98-107) (98-107) Carbon Dioxide Level 25.0 MEQ/L 25.2 MEQ/L (21.0-32.0) (21.0-32.0) Anion Gap 9 MEQ/L (5-15) 7 MEQ/L (5-15) Blood Urea Nitrogen 13 MG/DL (7-18) 14 MG/DL (7-18) Creatinine 0.88 MG/DL 0.98 MG/DL (0.60-1.30) (0.60-1.30) Estimat Glomerular Filtration 96 ML/MIN (>89) 85 ML/MIN (>89) Rate Random Glucose 152 MG/DL 143 MG/DL (74-106) (74-106) Serum Osmolality 322 MOSM/KG (275-295) Calcium Level 7.6 MG/DL 7.7 MG/DL (8.5-10.1) (8.5-10.1) White Blood Count 11.8 TH/MM3 (4.0-11.0) Red Blood Count 3.56 MIL/MM3 (4.50-5.90) Hemoglobin 10.5 GM/DL (13.0-17.0) Hematocrit 30.5 % (39.0-51.0) Mean Corpuscular Volume 85.7 FL (80.0-100.0) Mean Corpuscular Hemoglobin 29.4 PG (27.0-34.0) Mean Corpuscular Hemoglobin 34.3 % Concent (32.0-36.0) Red Cell Distribution Width 17.1 % (11.6-17.2) Platelet Count 96 TH/MM3 (150-450) Mean Platelet Volume 8.9 FL (7.0-11.0) Neutrophils (%) (Auto) 88.9 % (16.0-70.0) Lymphocytes (%) (Auto) 4.3 % (9.0-44.0) Monocytes (%) (Auto) 6.6 % (0.0-8.0) Eosinophils (%) (Auto) 0.1 % (0.0-4.0) Basophils (%) (Auto) 0.1 % (0.0-2.0) Neutrophils # (Auto) 10.5 TH/MM3 (1.8-7.7) Lymphocytes # (Auto) 0.5 TH/MM3 (1.0-4.8) Monocytes # (Auto) 0.8 TH/MM3 (0-0.9) Eosinophils # (Auto) 0.0 TH/MM3 (0-0.4) Basophils # (Auto) 0.0 TH/MM3 (0-0.2) CBC Comment AUTO DIFF Differential Total Cells 100 Counted Neutrophils % (Manual) 47 % (16-70) Band Neutrophils % 38 % (0-6) Lymphocytes % 7 % (9-44) Monocytes % 6 % (0-8) Neutrophils # (Manual) 10.3 TH/MM3 (1.8-7.7) Metamyelocytes 1 % (0-1) Myelocytes 1 % (0-0) Differential Comment FINAL DIFF MANUAL Platelet Estimate LOW (NORMAL) Platelet Morphology Comment NORMAL (NORMAL) Blood Gas Puncture Site ART LINE Blood Gas Patient Temperature 98.6 Blood Gas HCO3 22 mmol/L (22-26) Blood Gas Base Excess -2.7 mmol/L (-2-2) Blood Gas Oxygen Saturation 97 % (90-100) Arterial Blood pH 7.38 (7.380-7.420) Arterial Blood Partial 37 mmHg (38-42) Pressure CO2 Arterial Blood Partial 141 mmHg Pressure O2 (61-120) Arterial Blood Oxygen Content 14.3 Vol % (12.0-20.0) Arterial Blood 1.0 % (0-4) Carboxyhemoglobin Arterial Blood Methemoglobin 1.1 % (0-2) Blood Gas Hemoglobin 10.3 G/DL (12.0-16.0) Oxygen Delivery Device VENTILATOR Blood Gas Ventilator Setting SEE COMMENTS Blood Gas Inspired Oxygen 80 % Phosphorus Level 1.0 MG/DL (2.5-4.9) Magnesium Level 2.1 MG/DL (1.5-2.5) Total Bilirubin 0.9 MG/DL (0.2-1.0) Aspartate Amino Transf 36 U/L (15-37) (AST/SGOT) Alanine Aminotransferase 40 U/L (12-78) (ALT/SGPT) Alkaline Phosphatase 80 U/L (45-117) Total Protein 5.3 GM/DL (6.4-8.2) Albumin 1.9 GM/DL (3.4-5.0) Phenytoin (Dilantin) Level 17.8 MCG/ML (10.0-20.0) Test 06/25/16 06/25/16 06/26/16 06/26/16 12:30 17:55 04:00 05:42 Urine Specific [place] 1.027 (1.002-1.035) Urine Osmolality 526 MOSM/KG (300-1300) Urine Random Creatinine 75.5 MG/DL Urine Random Sodium 74 MEQ/L Blood Gas Puncture Site ART LINE IDANIA Blood Gas Patient Temperature 98.6 98.6 Blood Gas HCO3 22 mmol/L 23 mmol/L (22-26) (22-26) Blood Gas Base Excess -1.9 mmol/L -0.9 mmol/L (-2-2) (-2-2) Blood Gas Oxygen Saturation 95 % (90-100) 97 % (90-100) Arterial Blood pH 7.38 7.42 (7.380-7.420) (7.380-7.420) Arterial Blood Partial 39 mmHg (38-42) 36 mmHg (38-42) Pressure CO2 Arterial Blood Partial 86 mmHg 164 mmHg Pressure O2 (61-120) (61-120) Arterial Blood Oxygen Content 13.3 Vol % 13.4 Vol % (12.0-20.0) (12.0-20.0) Arterial Blood 1.1 % (0-4) 1.1 % (0-4) Carboxyhemoglobin Arterial Blood Methemoglobin 1.0 % (0-2) 1.0 % (0-2) Blood Gas Hemoglobin 9.9 G/DL 9.6 G/DL (12.0-16.0) (12.0-16.0) Oxygen Delivery Device VENTILATOR VENTILATOR Blood Gas Ventilator Setting PRVC/AC SEE COMMENT Blood Gas Inspired Oxygen 60 % 60 % White Blood Count 15.5 TH/MM3 (4.0-11.0) Red Blood Count 3.18 MIL/MM3 (4.50-5.90) Hemoglobin 9.3 GM/DL (13.0-17.0) Hematocrit 27.2 % (39.0-51.0) Mean Corpuscular Volume 85.6 FL (80.0-100.0) Mean Corpuscular Hemoglobin 29.2 PG (27.0-34.0) Mean Corpuscular Hemoglobin 34.1 % Concent (32.0-36.0) Red Cell Distribution Width 17.2 % (11.6-17.2) Platelet Count 114 TH/MM3 (150-450) Mean Platelet Volume 8.5 FL (7.0-11.0) Neutrophils (%) (Auto) 87.5 % (16.0-70.0) Lymphocytes (%) (Auto) 2.6 % (9.0-44.0) Monocytes (%) (Auto) 8.3 % (0.0-8.0) Eosinophils (%) (Auto) 0.8 % (0.0-4.0) Basophils (%) (Auto) 0.8 % (0.0-2.0) Neutrophils # (Auto) 13.5 TH/MM3 (1.8-7.7) Lymphocytes # (Auto) 0.4 TH/MM3 (1.0-4.8) Monocytes # (Auto) 1.3 TH/MM3 (0-0.9) Eosinophils # (Auto) 0.1 TH/MM3 (0-0.4) Basophils # (Auto) 0.1 TH/MM3 (0-0.2) CBC Comment DIFF FINAL Differential Comment Sodium Level 160 MEQ/L (136-145) Potassium Level 2.8 MEQ/L (3.5-5.1) Chloride Level 127 MEQ/L (98-107) Carbon Dioxide Level 25.1 MEQ/L (21.0-32.0) Anion Gap 8 MEQ/L (5-15) Blood Urea Nitrogen 16 MG/DL (7-18) Creatinine 0.83 MG/DL (0.60-1.30) Estimat Glomerular Filtration 103 ML/MIN Rate (>89) Random Glucose 131 MG/DL (74-106) Serum Osmolality 326 MOSM/KG (275-295) Calcium Level 7.7 MG/DL (8.5-10.1) Phosphorus Level 1.3 MG/DL (2.5-4.9) Magnesium Level 2.2 MG/DL (1.5-2.5) Total Bilirubin 0.8 MG/DL (0.2-1.0) Aspartate Amino Transf 24 U/L (15-37) (AST/SGOT) Alanine Aminotransferase 32 U/L (12-78) (ALT/SGPT) Alkaline Phosphatase 61 U/L (45-117) Total Protein 5.1 GM/DL (6.4-8.2) Albumin 1.7 GM/DL (3.4-5.0) Test 06/26/16 12:25 Sodium Level 156 MEQ/L (136-145) Serum Osmolality 330 MOSM/KG (275-295) (KETAN LE-[place]) Result Diagram: 06/26/16 0400 06/26/16 1225 Microbiology Microbiology Date/Time Procedure Status Source Growth 06/26/16 00:07 Aerobic Blood Culture Received Blood Peripheral Pending 06/26/16 00:07 Anaerobic Blood Culture Received Blood Peripheral Pending 06/26/16 04:17 Aerobic Blood Culture Received Blood Peripheral Pending 06/26/16 04:17 Anaerobic Blood Culture Received Blood Peripheral Pending Imaging Last Impressions Chest X-Ray 06/26/16 0600 Signed Impressions: Service Date/Time: Sunday, June 26, 2016 04:26 - CONCLUSION: 1. Diffuse right-sided edema versus pneumonia. There has been no significant change when compared to the prior exam. Amandeep Krishna MD Head CT 06/24/16 0000 Signed Impressions: Service Date/Time: Friday, June 24, 2016 13:37 - CONCLUSION: 1. There is extensive intraparenchymal, subarachnoid and subdural hemorrhage evident as described above. The size of the intraparenchymal hemorrhage has mildly increased when compared to previous study dated 06/21/16. The overall amount of subarachnoid hemorrhage and subdural hemorrhage is similar. There is a decrease in the amount of falcine shift when compared to the prior exam. Lee Helton MD Thoracic Spine CT 06/21/161011 Signed Impressions: Service Date/Time: Tuesday, June 21, 2016 10:20 - CONCLUSION: 1. No acute fracture or subluxation of the thoracic spine. 2. Acute nondisplaced fractures involving the posterior aspect of the left 10th and 11th ribs. Omar Maravilla MD Pelvis X-Ray 06/21/161011 Signed Impressions: Service Date/Time: Tuesday, June 21, 2016 09:59 - CONCLUSION: 1. There is no evidence of acute fracture. Amandeep Krishna MD Maxillofacial CT 06/21/161011 Signed Impressions: Service Date/Time: Tuesday, June 21, 2016 10:24 - CONCLUSION: 1. Acute fracture involving the nasal bones with extensive soft tissue swelling surrounding the nose. 2. Small fluid levels within the right maxillary and sphenoid sinuses as well as mucosal thickening involving the ethmoid air cell bilaterally and left maxillary sinus. 3. Opacification of the mastoid air cells bilaterally suggesting mastoiditis. Omar Maravilla MD Lumbar Spine CT 06/21/161011 Signed Impressions: Service Date/Time: Tuesday, June 21, 2016 10:20 - CONCLUSION: No acute disease. Omar Maravilla MD Chest CT 06/21/161011 Signed Impressions: Service Date/Time: Tuesday, June 21, 2016 10:24 - CONCLUSION: Subtle acute nondisplaced fractures involving the posterior aspect of the left 10th and 11th ribs. Omar Maravilla MD Cervical Spine CT 06/21/161011 Signed Impressions: Service Date/Time: Tuesday, June 21, 2016 10:23 - CONCLUSION: 1. Degenerative disc disease at C6-7. 2. No acute fracture or prevertebral soft tissue swelling. Omar Maravilla MD Abdomen/Pelvis CT 06/21/161011 Signed Impressions: Service Date/Time: Tuesday, June 21, 2016 10:24 - CONCLUSION: Acute fracture involving the junction of the right inferior pubic ramus and ischium. Omar Maravilla MD Femur X-Ray 06/21/16 0000 Signed Impressions: Service Date/Time: Tuesday, June 21, 2016 09:59 - CONCLUSION: Acute comminuted displaced fracture involving the left mid femur. Omar Maravilla MD Procedures * 06/21/16 - placement of traction pin, closed reduction left femur fracture. * 06/21/16 - Left frontotemporoparietal craniotomy for evacuation of subdural hemorrhage, left decompressive craniectomy with expansive duraplasty, right frontal bur hole ventriculostomy placement. (KETAN LE-[place]) Assessment and Plan Disease Oriented Problem List: (1) Major neurocognitive disorder as late effect of traumatic brain injury without behavioral disturbance (2) Closed fracture of left femur (3) Blunt head trauma (4) Coma (5) Acute respiratory failure (6) Acute subdural hematoma Symptom Scale: (1) Hypotension 0-10 Scale: Unable to quantify Comment: On Levo (2) Dyspnea 0-10 Scale: Unable to quantify (3) Pain 0-10 Scale: Unable to quantify Comment: Potential pain sources include recent traumatic brain injury, multiple fractures, intubation, etc...On Fentanyl and Versed. . Pertinent Non-Medical Issues Psychosocial: Single. No children. Spiritual: Unknown. Legal: Living Will and designation of HCS on chart. Designated Health Care Surrogate primary: Amandeep Birch and alternate: Corry Salazar (both are here from [place]). Ethical issues impacting care: No known concerns at this time. . Important Contacts * Amandeep Birch, primary HCS/ friend: [phone] * Corry Salazar, alternate HCS/ friend: [phone] . Prognosis Given severe traumatic brain injury suffered from skydiving fall overall prognosis appears poor. . Code Status: Full Code Plan * Living Will and designation of HCS on chart. Designated Health Care Surrogate primary: Amandeep Birch and alternate: Corry Salazar (both are here from [place]). Sent to [facility] to be scanned into EMR. * FULL CODE * Goals remain appropriately aggressive at this time including FULL CODE. * HCS requests to be called for consent on the day of possible leg surgery, they want to take into consideration his condition when surgery is being considered. * SYMPTOMS: Pain: potential sources include skydiving fall, TBI, recent surgeries, multiple fractures, intubation. Dyspnea: on mech vent. Hypotension: On Levo. No new medication recommendations at this time. * Palliative care will continue to follow to assist with symptom management, clarification of treatment goals as needed, communication with HCS and provide support. . (KETAN LE) Attestation To help prompt me to consider important information that might be impacting today's encounter and assessment, information from prior notes written by myself or my colleagues may have been "brought forward" into today's note. My signature on this note, however, is an attestation that I personally performed the exam, history, and/or decision-making noted today, and, unless otherwise indicated, the interactions with patient, family, and staff as well as the review of records all occurred today. I also attest that the listed assessment and stated plan reflect my best clinical judgment today based on the combination of historical information, prior notes, and today's exam/ interactions. When time spent is documented, it refers only to time spent today by the signer, or if indicated, combined time spent today by collaborating physician/nurse practitioner. (KETAN LE) Collaborating MD Comments Chart reviewed. Case discussed with palliative care FINANCIAL SERVICE REP. Above FINANCIAL SERVICE REP note reviewed and I concur. . (Ezequiel Edmondson MD) KETAN LE Jun 26, 2016 17:25 Ezequiel Edmondson MD Jun 30, 2016 12:24
[2016-06-26 18:44] LABS: MAGNESIUM 2.1 MG/DL (1.5-2.5); POTASSIUM 3.4 MEQ/L (3.5-5.1)
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
[2016-06-26] MEDS: CHLORHEXIDINE 0.12% (ORAL KIT) 15 ML CUP MT SCH (22:51)
[2016-06-27] VITALS (18 sets, daily range): BP systolic 117–134; BP diastolic 51–63; PULSE 99–108; RESP 19–25; TEMP 99.7–101.5; O2SAT 96–100
[2016-06-27] MEDS: RESP: ALBUTEROL 2.5 MG/IPRATROPIUM 0.5 MG NEB (SCH) NEB ×4 (03:14→20:51)
[2016-06-27] MEDS: CHLORHEXIDINE GLUCONATE 2 % 1 PACK (2 CLOTHS) TOP SCH (04:00)
[2016-06-27 05:47] LABS: BLOOD GAS BASE EXCESS -0.6 mmol/L (-2-2); BLOOD GAS CARBOXYHEMOGLOBIN 1.3 % (0-4); BLOOD GAS HCO3 23 mmol/L (22-26); BLOOD GAS METHEMOGLOBIN 0.8 % (0-2); BLOOD GAS O2 HGB SATURATION 97 % (90-100); BLOOD GAS OXYGEN CONTENT 13.3 Vol % (12.0-20.0); BLOOD GAS PCO2 32 mmHg (38-42); BLOOD GAS PO2 112 mmHg (61-120); BLOOD GAS TOTAL HGB 9.6 G/DL (12.0-16.0); CRITICAL VALUE NO; DRAW SITE ART LINE; FIO2 50 %; OXYGEN DEVICE VENTILATOR; STAT NO; TEMP CORR TO 98.6; VENT SETTINGS PRVC/AC
[2016-06-27] MEDS: INSULIN NovoLIN REGULAR SUPPLEMENTAL SCALE SQ SCH ×3 (06:00→18:00)
--- NOTE | 2016-06-27 06:01 | RADRPT ---
EXAM DATE/TIME: 06/27/2016 04:30 [facility] COMPARISON: CHEST SINGLE AP, June 26, 2016, 4:26. INDICATIONS : Short of breath. MEDICAL HISTORY : None. SURGICAL HISTORY : None. ENCOUNTER: Initial ACUITY: 1 week PAIN SCORE: Non-responsive. LOCATION: Bilateral chest FINDINGS: The cardiac silhouette is normal in transverse diameter. 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 There is right sided edema versus pneumonia with left perihilar opacity. A mode rate size right sided effusion is present. CONCLUSION: 1. There has been no significant change when compared to the prior exam. Amandeep Krishna MD on June 27, 2016 at 5:59 Board Certified Radiologist. This report was verified electronically.
[2016-06-27 06:30] LABS: HEMATOCRIT 28.5 % (39.0-51.0); MEAN CELL VOLUME 86.5 FL (80.0-100.0); MEAN CORPUSCULAR HEMOGLOBIN 29.2 PG (27.0-34.0); MEAN CORPUSCULAR HGB CONC 33.8 % (32.0-36.0); PLATELET COUNT 159 TH/MM3 (150-450); RED CELL DISTRIBUTION WIDTH 17.3 % (11.6-17.2); REVIEW FLAG FINAL; WHITE BLOOD COUNT 18.1 TH/MM3 (4.0-11.0)
[2016-06-27 06:41] LABS: BICARBONATE 25.1 MEQ/L (21.0-32.0); POTASSIUM 3.5 MEQ/L (3.5-5.1)
[2016-06-27] MEDS: PIPERACIL-TAZO 4.5 GM PREMIX 100 ML IV SCH ×3 (06:54→18:44)
[2016-06-27] MEDS: ACETAMINOPHEN 1000 MG/100 ML VIAL IV PRN ×3 (06:54→22:56)
--- NOTE | 2016-06-27 06:54 | PD.ORT.PN ---
Subjective Subjective Remarks s/p application of femoral traction pin and skeletal traction s/p bone flap of head prognosis has worsened and POA leaning towards palliative care Per nurse, POA thinking of giving patient 48hrs and then withdrawing care if no improvement Objective Vitals Vital Signs Date Time Temp Pulse Resp B/P Pulse Ox O2 Delivery O2 Flow Rate FiO2 06/27/16 04:00 98 50 06/27/16 04:00 100 06/27/16 02:00 100 06/27/16 01:37 96 50 06/27/16 00:20 99 50 06/27/16 00:00 101.3 102 19 120/51 99 06/27/16 00:00 50 06/27/16 00:00 102 120/57 06/27/16 00:00 102 06/26/16 22:00 104 06/26/16 21:20 96 50 06/26/16 20:00 100.6 100 19 123/61 97 06/26/16 20:00 50 06/26/16 20:00 100 06/26/16 19:00 94 122/60 06/26/16 18:00 96 06/26/16 18:00 96 122/55 06/26/16 17:00 103 121/57 06/26/16 16:00 50 06/26/16 16:00 102 127/61 06/26/16 16:00 102 06/26/16 16:00 100.6 102 20 127/61 98 06/26/16 15:17 98 50 06/26/16 15:17 98 50 06/26/16 15:00 101 124/57 06/26/16 14:00 101 130/60 06/26/16 14:00 101 06/26/16 13:00 95 118/55 06/26/16 12:00 95 124/54 06/26/16 12:00 95 06/26/16 12:00 99.0 95 18 124/54 99 06/26/16 12:00 50 06/26/16 11:08 100 50 06/26/16 11:00 91 114/54 06/26/16 10:00 85 116/56 06/26/16 10:00 85 06/26/16 09:00 84 116/56 06/26/16 08:00 88 122/52 06/26/16 08:00 90 06/26/16 08:00 50 06/26/16 08:00 98.6 88 18 122/52 100 06/26/16 07:38 100 60 06/26/16 07:31 100 50 06/26/16 07:00 92 134/54 I/O 06/26/16 06/26/16 06/26/16 06/27/16 06/27/16 06/27/16 07:00 15:00 23:00 07:00 15:00 23:00 Intake Total 879 ml 1880 ml 1474 ml Output Total 428 ml 494 ml 842 ml Balance 451 ml 1386 ml 632 ml Intake IV Total 734 ml 1516 ml 910 ml Tube Feeding 145 ml 164 ml 164 ml Other 200 ml 400 ml Output Urine Total 400 ml 450 ml 800 ml Gastric Drainage Total 0 ml Drainage Total 28 ml 44 ml 42 ml # Bowel Movements 0 0 Result Diagram: 06/27/16 0532 06/27/16 0532 Imaging Last 24 hours Impressions Chest X-Ray 06/22/16 0000 Signed Impressions: Service Date/Time: Wednesday, June 22, 2016 04:28 - CONCLUSION: Support tubes appropriately positioned as above. Lungs remain clear. Prince Valdez MD Procedures Placement of traction pin, closed reduction of left femur fracture (06/21/16) Objective Remarks Bilateral lower extremities cool to touch and pale, symmetric. LLE in skeletal traction. Pin sites clean with mild bloody drainage on dressing. Good cap refill. 2+ dorsalis pedis. Unable to assess motor/neurovascular status due to sedation/intubation. Assessment & Plan Problem List: (1) Closed fracture of left femur (2) Acute subdural hematoma (3) Blunt head trauma (4) Coma (5) Acute respiratory failure Assessment and Plan s/p left femur fracture with skeletal traction -maintain traction -pin care -will await medical decision on care before any surgery done Yehuda Kya Jun 27, 2016 06:54
[2016-06-27 07:07] LABS: CALCIUM-PROTEIN CORRECTED 8.2 MG/DL (8.5-10.1)
[2016-06-27] MEDS: CHLORHEXIDINE 0.12% (ORAL KIT) 15 ML CUP MT SCH ×2 (08:01→20:57)
[2016-06-27 08:32] LABS: MAGNESIUM 2.1 MG/DL (1.5-2.5)
[2016-06-27] MEDS: SODIUM CHLORIDE 0.9% FLUSH 5 ML FLUSH IV FLUSH SCH ×2 (09:00→20:57)
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
[2016-06-27] MEDS: SODIUM CHLOR 0.9% 1000 ML INJ 1,000 ML IV SCH (09:48)
[2016-06-27] MEDS: FOSPHENYTOIN INJ 100 MGPE in SODIUM CHLORIDE 0.9% INJ 50 ML IV SCH (09:49)
[2016-06-27] MEDS: LACTULOSE SYRUP 20 GM/30 ML CUP PO SCH (09:49)
[2016-06-27] MEDS: levETIRAcetam 1000 MG INJ 100 ML IV SCH ×2 (09:49→20:57)
[2016-06-27] MEDS: DOCUSATE SODIUM 100 MG CAP PO SCH ×2 (09:49→20:57)
[2016-06-27] MEDS: PANTOPRAZOLE SODIUM 40 MG VIAL IVP SCH (11:17)
--- NOTE | 2016-06-27 12:24 | HHI.PR ---
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 He has no psychiatric difficulties, as described above. Substance abuse history was unremarkable. Behavioral Reactions of Patient and Family/Support System: Tenuous. The patients family is experiencing ongoing issues of adjustment given the nature of the injury, and this aspect of recovery will require ongoing monitoring. Emotional/Behavioral Status of Patient and Family/Support System: Tenuous. Pertinent issues, if appropriate to this patients clinical care, are described in detail above. Maximizing acute care outcome It is recommended that the patient be monitored for emergent behavioral impulsivity as the medical condition evolves. This patients neuropathological challenges may limit their rehabilitation potential going forward, and these challenges will require specialized therapeutic skills to maximize outcome. Additionally, the patients family is experiencing ongoing issues of adjustment given the traumatic nature of the injury, and they will need ongoing psychological assistance. Anticipated Problems Ongoing areas of concern will include behavioral impulsivity, lack of insight and judgment, which is expected to improve with time and treatment. Treatment Plan This clinician will continue to follow with you throughout the course of this patients rehabilitation treatment, and I will be available to meet with the patients family/support system to facilitate their understanding and the ongoing care of their family member. The goals of neuropsychological intervention shall be both educational and supportive to the family/support system as is deemed clinically appropriate. [facility] Level: I:No response-total assistance Diagnosis: (1) Major neurocognitive disorder as late effect of traumatic brain injury without behavioral disturbance Status: Acute Progress Note Narrative Ongoing follow-up of this patient within the context of daily trauma rounding. No family were present to discuss care. From a neurobehavioral perspective, there has been no change in his clinical status as he remains nonresponsive, sedated and intubated. From a neuropsychological perspective, the prognosis for this patient to have sufficient recovery to return to his baseline state given the severity of his injuries is nonexistent, as in my opinion he will be expected to have significant and persistent neuropsychological impairments. I shall continue to follow with you. Tristan Duffy PhD Jun 27, 2016 12:24 pm
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
[2016-06-27] MEDS: FOSPHENYTOIN SODIUM 100 MG PE/2 ML VIAL IV SCH (20:57)
[2016-06-28] VITALS (20 sets, daily range): BP systolic 120–158; BP diastolic 56–69; PULSE 96–110; RESP 19–25; TEMP 99.7–101.5; O2SAT 98–100
[2016-06-28] MEDS: fentaNYL 2,500 MCG/NS 250 ML IV SCH (01:21)
[2016-06-28] MEDS: RESP: ALBUTEROL 2.5 MG/IPRATROPIUM 0.5 MG NEB (SCH) NEB ×3 (03:08→15:36)
[2016-06-28] MEDS: CHLORHEXIDINE GLUCONATE 2 % 1 PACK (2 CLOTHS) TOP SCH (04:00)
--- NOTE | 2016-06-28 04:31 | RADRPT ---
EXAM DATE/TIME: 06/28/2016 03:54 [facility] COMPARISON: CHEST SINGLE AP, June 27, 2016, 4:30. INDICATIONS : Shortness of breath. MEDICAL HISTORY : None. SURGICAL HISTORY : None. ENCOUNTER: Subsequent ACUITY: 1 week PAIN SCORE: Non-responsive. LOCATION: Bilateral chest FINDINGS: The cardiac silhouette is normal in transverse diameter. Support lines and tubes are in satisfactory position. There is patchy alveolar disease bilaterally compatible with edema or pneumonia. The findin gs are similar to the prior exam. A moderate size right sided effusion is present. CONCLUSION: 1. Patchy alveolar disease characteristic of edema or pneumonia. There has been no significant lopez e when compared to the prior exam. Amandeep Krishna MD on June 28, 2016 at 4:29 Board Certified Radiologist. This report was verified electronically.
[2016-06-28 04:55] LABS: BLOOD GAS BASE EXCESS -1.4 mmol/L (-2-2); BLOOD GAS CARBOXYHEMOGLOBIN 1.5 % (0-4); BLOOD GAS HCO3 22 mmol/L (22-26); BLOOD GAS METHEMOGLOBIN 0.9 % (0-2); BLOOD GAS O2 HGB SATURATION 96 % (90-100); BLOOD GAS OXYGEN CONTENT 15.4 Vol % (12.0-20.0); BLOOD GAS PCO2 30 mmHg (38-42); BLOOD GAS PO2 112 mmHg (61-120); BLOOD GAS TOTAL HGB 11.3 G/DL (12.0-16.0); CRITICAL VALUE NO; DRAW SITE ART LINE; FIO2 40 %; OXYGEN DEVICE VENTILATOR; STAT NO; TEMP CORR TO 98.6; VENT SETTINGS PRVC/AC
[2016-06-28] MEDS: ACETAMINOPHEN 1000 MG/100 ML VIAL IV PRN ×3 (05:52→18:18)
[2016-06-28] MEDS: PIPERACIL-TAZO 4.5 GM PREMIX 100 ML IV SCH ×5 (05:52→23:07)
[2016-06-28] MEDS: INSULIN NovoLIN REGULAR SUPPLEMENTAL SCALE SQ SCH ×4 (06:00→17:57)
[2016-06-28 06:26] LABS: AUTOMATED NEUTROPHIL # 17.4 TH/MM3 (1.8-7.7); BASOPHIL % 0.2 % (0.0-2.0); EOSINOPHIL % 0.2 % (0.0-4.0); HEMATOCRIT 29.1 % (39.0-51.0); HEMO FLAGS AUTO DIFF; LYMPH % 4.7 % (9.0-44.0); MEAN CELL VOLUME 87.3 FL (80.0-100.0); MEAN CORPUSCULAR HEMOGLOBIN 29.2 PG (27.0-34.0); MEAN CORPUSCULAR HGB CONC 33.5 % (32.0-36.0); MONO % 10.1 % (0.0-8.0); NEUT % 84.8 % (16.0-70.0); PLATELET COUNT 221 TH/MM3 (150-450); RED BLOOD COUNT 3.34 MIL/MM3 (4.50-5.90); RED CELL DISTRIBUTION WIDTH 16.7 % (11.6-17.2); WHITE BLOOD COUNT 20.5 TH/MM3 (4.0-11.0)
[2016-06-28 06:58] LABS: ALKALINE PHOSPHATASE 134 U/L (45-117); ALT (GPT) 50 U/L (12-78); ANION GAP 9 MEQ/L (5-15); AST (GOT) 49 U/L (15-37); BICARBONATE 23.9 MEQ/L (21.0-32.0); BLOOD UREA NITROGEN 16 MG/DL (7-18); CHLORIDE 110 MEQ/L (98-107); GLOMERULAR FILTRATION RATE 119 ML/MIN (>89); MAGNESIUM 2.3 MG/DL (1.5-2.5); POTASSIUM 3.8 MEQ/L (3.5-5.1); SODIUM (NA) 143 MEQ/L (136-145); TOTAL BILIRUBIN ADULT 1.3 MG/DL (0.2-1.0)
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
[2016-06-28 08:01] LABS: BANDS 4 % (0-6); CORRECTED NUCLEATED RBC 2 /100 WBC (0-0); MYELOCYTES 2 % (0-0); POLYS (SEG NEUTROPHILS) 82 % (16-70); WBC DIFF SAMPLE 100
[2016-06-28 08:02] LABS: PLATELET ESTIMATE SMEAR NORMAL (NORMAL); PLATELET MORPHOLOGY NORMAL (NORMAL); SCAN/DIFF FINAL DIFF MANUAL
[2016-06-28] MEDS: CHLORHEXIDINE 0.12% (ORAL KIT) 15 ML CUP MT SCH ×2 (08:26→21:36)
[2016-06-28] MEDS: levETIRAcetam 1000 MG INJ 100 ML IV SCH ×2 (08:28→21:37)
[2016-06-28] MEDS: SODIUM CHLORIDE 0.9% FLUSH 5 ML FLUSH IV FLUSH SCH ×2 (08:28→21:38)
[2016-06-28] MEDS: FOSPHENYTOIN SODIUM 100 MG PE/2 ML VIAL IV SCH ×2 (08:28→21:37)
[2016-06-28] MEDS: DOCUSATE SODIUM 100 MG CAP PO SCH ×2 (08:28→21:37)
[2016-06-28] MEDS: LACTULOSE SYRUP 20 GM/30 ML CUP PO SCH (08:29)
[2016-06-28] MEDS: SODIUM CHLOR 0.9% 1000 ML INJ 1,000 ML IV SCH (10:00)
[2016-06-28] MEDS: PANTOPRAZOLE SODIUM 40 MG VIAL IVP SCH (10:50)
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
--- NOTE | 2016-06-28 12:25 | HHI.PR ---
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 He has no psychiatric difficulties, as described above. Substance abuse history was unremarkable. Behavioral Reactions of Patient and Family/Support System: Tenuous. The patients family is experiencing ongoing issues of adjustment given the nature of the injury, and this aspect of recovery will require ongoing monitoring. Emotional/Behavioral Status of Patient and Family/Support System: Tenuous. Pertinent issues, if appropriate to this patients clinical care, are described in detail above. Maximizing acute care outcome It is recommended that the patient be monitored for emergent behavioral impulsivity as the medical condition evolves. This patients neuropathological challenges may limit their rehabilitation potential going forward, and these challenges will require specialized therapeutic skills to maximize outcome. Additionally, the patients family is experiencing ongoing issues of adjustment given the traumatic nature of the injury, and they will need ongoing psychological assistance. Anticipated Problems Ongoing areas of concern will include behavioral impulsivity, lack of insight and judgment, which is expected to improve with time and treatment. Treatment Plan This clinician will continue to follow with you throughout the course of this patients rehabilitation treatment, and I will be available to meet with the patients family/support system to facilitate their understanding and the ongoing care of their family member. The goals of neuropsychological intervention shall be both educational and supportive to the family/support system as is deemed clinically appropriate. [facility] Level: I:No response-total assistance Diagnosis: (1) Major neurocognitive disorder as late effect of traumatic brain injury without behavioral disturbance Status: Acute Progress Note Narrative Ongoing follow-up of patient both within the context of daily trauma rounding and bedside, where I was able to discuss neurobehavioral prognosis with the individual identified as a decision maker for the patient. From a neurobehavioral, neurocognitive and neuropsychological perspective, this patient has suffered a severe traumatic brain injury that will leave lasting and permanent impairments, and in my opinion this patient will never return to his baseline level of neuropsychological functioning in spite of both time and treatment. I will continue to follow with you. Tristan Duffy PhD Jun 28, 2016 12:25 pm
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
[2016-06-28 16:50] LABS: AUTOMATED NEUTROPHIL # 15.5 TH/MM3 (1.8-7.7); BASOPHIL % 0.2 % (0.0-2.0); EOSINOPHIL # 0.1 TH/MM3 (0-0.4); EOSINOPHIL % 0.4 % (0.0-4.0); HEMATOCRIT 29.2 % (39.0-51.0); LYMPH % 4.9 % (9.0-44.0); LYMPHOCYTE # 0.9 TH/MM3 (1.0-4.8); MEAN CELL VOLUME 87.6 FL (80.0-100.0); MEAN CORPUSCULAR HGB CONC 33.1 % (32.0-36.0); MONO % 9.9 % (0.0-8.0); NEUT % 84.6 % (16.0-70.0); PLATELET COUNT 224 TH/MM3 (150-450); RED BLOOD COUNT 3.33 MIL/MM3 (4.50-5.90); RED CELL DISTRIBUTION WIDTH 16.8 % (11.6-17.2); WHITE BLOOD COUNT 18.3 TH/MM3 (4.0-11.0)
[2016-06-28 17:01] LABS: APTT (PATIENT) 28.1 SEC (24.3-30.1); PROTHROMBIN TIME - PATIENT 11.4 SEC (9.8-11.6)
[2016-06-28 17:07] LABS: HEMO FLAGS AUTO DIFF
[2016-06-28 17:18] LABS: ANION GAP 8 MEQ/L (5-15)
[2016-06-28 17:21] LABS: BLOOD, URINE SMALL (NEG); GLUCOSE,URINE NEG (NEG); KETONE, URINE NEG (NEG); NITRITE,URINE NEG (NEG); SQUAMOUS EPITHELIAL CELL URINE <1 /hpf (0-5); URINE COLOR YELLOW (YELLW/STRAW)
[2016-06-28 17:23] LABS: ALKALINE PHOSPHATASE 146 U/L (45-117); ALT (GPT) 50 U/L (12-78); AST (GOT) 46 U/L (15-37); BICARBONATE 25.3 MEQ/L (21.0-32.0); BLOOD UREA NITROGEN 18 MG/DL (7-18); CHLORIDE 107 MEQ/L (98-107); GAMMA GT 364 U/L (15-85); GLOMERULAR FILTRATION RATE 110 ML/MIN (>89); INDIRECT BILIRUBIN 0.5 MG/DL (0.0-0.8); POTASSIUM 3.7 MEQ/L (3.5-5.1); SODIUM (NA) 140 MEQ/L (136-145); TOTAL BILIRUBIN ADULT 1.1 MG/DL (0.2-1.0)
[2016-06-28 17:24] LABS: COMMENT (UR) CULT NOT INDICATED; CULTURE IF INDICATED CULT NOT INDICATED
[2016-06-28 17:28] LABS: AMYLASE 124 U/L (25-115)
[2016-06-28] MEDS: ceFAZolin 1,000 MG/NS 100 ML IV SCH ×4 (17:34→23:07)
[2016-06-28] MEDS: PROPOFOL 1000 MG/100 ML INJ 100 ML IV SCH (18:43)
[2016-06-28 20:01] LABS: METAMYELOCYTES 3 % (0-1); PLASMA CELLS 1 % (0-0); PLATELET ESTIMATE SMEAR NORMAL (NORMAL); PLATELET MORPHOLOGY NORMAL (NORMAL); POLYS (SEG NEUTROPHILS) 90 % (16-70); SCAN/DIFF FINAL DIFF MANUAL; WBC DIFF SAMPLE 100
[2016-06-29] VITALS (9 sets, daily range): BP systolic 148–167; BP diastolic 60–71; PULSE 77–101; RESP 18–22; TEMP 100.4–101.3; O2SAT 99–100
[2016-06-29] MEDS: ACETAMINOPHEN 1000 MG/100 ML VIAL IV PRN (00:38)
[2016-06-29] MEDS: CHLORHEXIDINE GLUCONATE 2 % 1 PACK (2 CLOTHS) TOP SCH (03:53)
[2016-06-29] MEDS: ceFAZolin 1,000 MG/NS 100 ML IV SCH ×4 (03:54→11:24)
[2016-06-29] MEDS: PIPERACIL-TAZO 4.5 GM PREMIX 100 ML IV SCH ×2 (06:00→11:24)
[2016-06-29] MEDS: INSULIN NovoLIN REGULAR SUPPLEMENTAL SCALE SQ SCH ×3 (06:00→11:42)
[2016-06-29] MEDS: DOCUSATE SODIUM 100 MG CAP PO SCH (07:52)
[2016-06-29] MEDS: LACTULOSE SYRUP 20 GM/30 ML CUP PO SCH (07:52)
[2016-06-29] MEDS: CHLORHEXIDINE 0.12% (ORAL KIT) 15 ML CUP MT SCH (08:07)
[2016-06-29] MEDS: levETIRAcetam 1000 MG INJ 100 ML IV SCH (08:07)
[2016-06-29] MEDS: SODIUM CHLORIDE 0.9% FLUSH 5 ML FLUSH IV FLUSH SCH (08:07)
[2016-06-29] MEDS: FOSPHENYTOIN SODIUM 100 MG PE/2 ML VIAL IV SCH (08:32)
[2016-06-29] MEDS ORDERED: MORPHINE SULFATE 8 MG/ML INJ IV PUSH ONE (08:45)
[2016-06-29] MEDS ORDERED: LORazepam 2 MG/ML VIAL IV PUSH ONE (08:45)
[2016-06-29] MEDS ORDERED: HEPARIN SODIUM - IV 10,000 UNITS/10 ML VIAL IV ONE (09:00)
[2016-06-29 09:05] LABS: AUTOMATED NEUTROPHIL # 16.4 TH/MM3 (1.8-7.7); BASOPHIL % 0.1 % (0.0-2.0); EOSINOPHIL # 0.2 TH/MM3 (0-0.4); EOSINOPHIL % 1.2 % (0.0-4.0); HEMATOCRIT 29.2 % (39.0-51.0); LYMPH % 3.8 % (9.0-44.0); LYMPHOCYTE # 0.7 TH/MM3 (1.0-4.8); MEAN CELL VOLUME 86.6 FL (80.0-100.0); MEAN CORPUSCULAR HEMOGLOBIN 29.7 PG (27.0-34.0); MEAN CORPUSCULAR HGB CONC 34.3 % (32.0-36.0); MONO % 10.1 % (0.0-8.0); NEUT % 84.8 % (16.0-70.0); PLATELET COUNT 259 TH/MM3 (150-450); RED BLOOD COUNT 3.37 MIL/MM3 (4.50-5.90); RED CELL DISTRIBUTION WIDTH 16.1 % (11.6-17.2); WHITE BLOOD COUNT 19.4 TH/MM3 (4.0-11.0)
[2016-06-29 09:06] LABS: HEMO FLAGS AUTO DIFF
[2016-06-29 09:07] LABS: BACTERIA, URINE RARE /hpf; BLOOD, URINE SMALL (NEG); COMMENT (UR) CATH-CULTURE IND; CULTURE IF INDICATED CATH CULTURE IND; GLUCOSE,URINE NEG (NEG); KETONE, URINE NEG (NEG); MUCUS URINE FEW /lpf (OCC); NITRITE,URINE NEG (NEG); URINE COLOR YELLOW (YELLW/STRAW)
[2016-06-29 09:23] LABS: BICARBONATE 26.1 MEQ/L (21.0-32.0); POTASSIUM 3.6 MEQ/L (3.5-5.1)
[2016-06-29 09:26] LABS: INDIRECT BILIRUBIN 0.5 MG/DL (0.0-0.8); TOTAL BILIRUBIN ADULT 1.3 MG/DL (0.2-1.0)
[2016-06-29 09:47] LABS: BANDS 4 % (0-6); CORRECTED NUCLEATED RBC 1 /100 WBC (0-0); METAMYELOCYTES 1 % (0-1); NEUTROPHIL # MANUAL DIFF 17.7 TH/MM3 (1.8-7.7); POLYS (SEG NEUTROPHILS) 86 % (16-70); WBC DIFF SAMPLE 100
[2016-06-29 09:48] LABS: PLATELET ESTIMATE SMEAR NORMAL (NORMAL); PLATELET MORPHOLOGY NORMAL (NORMAL); SCAN/DIFF FINAL DIFF MANUAL
[2016-06-29] MEDS: SODIUM CHLOR 0.9% 1000 ML INJ 1,000 ML IV SCH (10:00)
[2016-06-29] MEDS: PANTOPRAZOLE SODIUM 40 MG VIAL IVP SCH (11:24)
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
[2016-06-29] MEDS: LORazepam 2 MG/ML VIAL IV PUSH PRN ×5 (12:45→15:24)
[2016-06-29] MEDS: MORPHINE SULFATE 8 MG/ML INJ IV PUSH PRN ×5 (12:45→14:45)
[2016-06-29 12:48] LABS: HEMOGLOBIN A1a 1.1 %; HEMOGLOBIN A1b 1.7 %; HEMOGLOBIN Ao 85.7 %; HEMOGLOBIN LA1C 1.8 %; HEMOGLOBIN P3 3.9 %
--- NOTE | 2016-06-29 14:58 | HHI.PR ---
Subjective Remarks Patient has severe brain damage and there is no possibility of meaningful recovery. [facility] team and I escorted patient to OR holding for pre-arranged compassionate extubation and organ procurement. The patient was extubated at 1240 hours. Oxygen saturation declined to < 5% by pulse oximetry but the patient sustained a perfusing heart rhythm for over 90 minutes. At that point the patient was deemed an unsuitable organ donor due to the length of organ ischemia. He was transported back to the [facility] for continuation of withdrawal procedure and natural . I spoke at length with his POA at the bedside. Objective Vital Signs Date Time Temp Pulse Resp B/P Pulse Ox O2 Delivery O2 Flow Rate FiO2 06/29/16 12:40 Room Air 21 06/29/16 12:30 99 100 06/29/16 10:00 96 06/29/16 09:08 100 40 06/29/16 09:08 100 40 06/29/16 08:00 77 160/66 06/29/16 08:00 40 06/29/16 08:00 77 06/29/16 08:00 100.4 77 22 160/66 99 06/29/16 06:00 93 06/29/16 04:00 99 40 06/29/16 04:00 96 148/62 06/29/16 04:00 100.4 88 18 148/60 100 06/29/16 04:00 88 06/29/16 04:00 40 06/29/16 02:00 93 06/29/16 01:42 99 40 06/29/16 00:00 93 06/29/16 00:00 101.3 101 21 167/71 100 06/29/16 00:00 40 06/29/16 00:00 96 167/71 06/28/16 22:40 100 40 06/28/16 22:00 101 06/28/16 20:00 96 06/28/16 20:00 40 06/28/16 20:00 96 158/69 06/28/16 20:00 100.0 96 20 158/69 100 06/28/16 19:49 100 40 06/28/16 19:49 100 40 06/28/16 18:00 110 06/28/16 16:00 96 148/64 06/28/16 16:00 100.8 106 25 148/64 100 2/17/17 16:00 40 06/28/16 16:00 106 06/28/16 15:32 100 40 I/O 06/28/16 06/28/16 06/28/16 06/29/16 06/29/16 06/29/16 07:00 15:00 23:00 07:00 15:00 23:00 Intake Total 989 ml 1097 ml 978 ml 500 ml Output Total 1595 ml 1542 ml 2001 ml 2000 ml Balance -606 ml -445 ml -1023 ml -1500 ml Intake IV Total 332 ml 439 ml 600 ml 500 ml Tube Feeding 257 ml 628 ml 378 ml Other 400 ml 30 ml Output Urine Total 1550 ml 1500 ml 2000 ml 2000 ml Stool Total 0 ml 1 ml 0 ml Drainage Total 45 ml 42 ml # Bowel Movements 1 Result Diagram: 06/29/16 0839 06/29/16 0839 Chuck Paz MD Jun 29, 2016 14:58
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
== END 2016-06-29 18:12 | disposition expired | DRG 955 ==
LOC: NEPI 10:05 → EDBD 10:37 → NEDA 10:37 → N03B 10:58
PROVIDERS: ADMIT Surgery; ATTEND Surgery
PROC: 5A1955Z Respiratory Ventilation, Greater than 96 Consecutive Hours (ICD-10-PCS; 2016-06-21)
PROC: 00C40ZZ Extirpation of Matter from Intracranial Subdural Space, Open Approach (ICD-10-PCS; 2016-06-21)
PROC: 0QS934Z Reposition Left Femoral Shaft with Internal Fixation Device, Percutaneous Approach (ICD-10-PCS; 2016-06-21)
PROC: 2W6PXZZ Traction of Left Upper Leg (ICD-10-PCS; 2016-06-21)
PROC: 30233N1 Transfusion of Nonautologous Red Blood Cells into Peripheral Vein, Percutaneous Approach (ICD-10-PCS; 2016-06-21)
PROC: 00U20JZ Supplement Dura Mater with Synthetic Substitute, Open Approach (ICD-10-PCS; principal; 2016-06-21 11:30)
PROC: 009630Z Drainage of Cerebral Ventricle with Drainage Device, Percutaneous Approach (ICD-10-PCS; 2016-06-21 11:30)
PROC: 30233K1 Transfusion of Nonautologous Frozen Plasma into Peripheral Vein, Percutaneous Approach (ICD-10-PCS; 2016-06-24)
DX: S72.352A Displaced comminuted fracture of shaft of left femur, initial encounter for closed fracture; S32.591A Other specified fracture of right pubis, initial encounter for closed fracture; Z51.5 Encounter for palliative care; Z66 Do not resuscitate; G93.5 Compression of brain; G93.6 Cerebral edema; J80 Acute respiratory distress syndrome; E87.0 Hyperosmolality and hypernatremia; S22.42XA Multiple fractures of ribs, left side, initial encounter for closed fracture; E44.1 Mild protein-calorie malnutrition; Q67.8 Other congenital deformities of chest; S32.691A Other specified fracture of right ischium, initial encounter for closed fracture; D62 Acute posthemorrhagic anemia; I95.9 Hypotension, unspecified; S02.2XXA Fracture of nasal bones, initial encounter for closed fracture; R40.20 Unspecified coma; R40.2431 Glasgow coma scale score 3-8, in the field [EMT or ambulance]; S02.82XA Fracture of other specified skull and facial bones, left side, initial encounter for closed fracture; S00.91XA Abrasion of unspecified part of head, initial encounter; E78.5 Hyperlipidemia, unspecified; F41.1 Generalized anxiety disorder; F31.9 Bipolar disorder, unspecified; H40.9 Unspecified glaucoma; F51.5 Nightmare disorder; G47.09 Other insomnia; R56.9 Unspecified convulsions; R31.9 Hematuria, unspecified; R73.9 Hyperglycemia, unspecified; Y93.39 Activity, other involving climbing, rappelling and jumping off; V97.29XA Other parachutist accident, initial encounter
CPT/HCPCS: 31500; 36430; 36556; 43753; 61210; 70450; 70486; 71010; 71260; 72125; 72128; 72131; 72170; 73551; 74177; 80048; 80053; 80076; 80185; 81001; 81003; 82150; 82435; 82565; 82570; 82805; 82947; 82948; 82977; 83036; 83605; 83690; 83735; 83930; 83935; 84100; 84132; 84155; 84295; 84300; 84520; 85007; 85014; 85018; 85025; 85027; 85384; 85610; 85730; 86850; 86900; 86901; 86920; 86927; 87040; 87086; 87205; 87641; 90471; 90715; 94002; 94003; 94640; 94664; 94770; 95819; 96374; 96375; 99291; A0431-QM-SH; A0436-QM-SH; C1713; C9113; E0880; G0390; J0131; J0171; J0330; J0690; J1580; J1644; J1940; J1953; J2060; J2150; J2250; J2270; J2370; J2543; J2597; J3010; J3370; J3480; J7030; J7040; J7050; P9016; P9017; Q2009; Q9967